=== PATIENT | male | born 1950 | race Caucasian/White ===

== ENCOUNTER 2017-01-13 07:56 | Day surgery (SDC) | payer OTHER ==
[2017-01-13] MEDS ORDERED: LIDOCAINE 1% 2 ML INJ ONE (08:23)
[2017-01-13] MEDS ORDERED: NA BICARBONATE 50 MEQ/50 ML VIAL ONE (08:38)
[2017-01-13] MEDS ORDERED: IOPAMIDOL (ISOVUE-M 200) 20 ML VIAL IV ONE (08:38)
[2017-01-13] MEDS ORDERED: TRIAMCINOLONE ACETONIDE 40 MG/ML VIAL ONE (08:38)
[2017-01-13] MEDS ORDERED: DEXAMETHASONE 10 MG/ML VIAL ONE (08:39)
[2017-01-13] MEDS ORDERED: BUPIVACAINE 0.25% 30 ML SDV ONE (08:39)
[2017-01-13] MEDS ORDERED: LIDOCAINE 1% 30 ML SDV ONE (08:39)
[2017-01-13] MEDS ORDERED: MIDAZOLAM 2 MG/2 ML VIAL ONE (08:41)
[2017-01-13] MEDS ORDERED: fentaNYL 100 MCG/2 ML INJ ONE (08:41)
[2017-01-13] MEDS ORDERED: LIDOCAINE 1% 2 ML INJ ID PRN (08:58)
[2017-01-13] MEDS ORDERED: LR 1,000 ML IV SCH (09:00)
[2017-01-13] MEDS ORDERED: MIDAZOLAM 2 MG/2 ML VIAL IVP PRN (09:01)
--- NOTE | 2017-01-13 11:01 | GPN ---
[f rep st] PROCEDURE NOTE TIME OF PROCEDURE: 9 a.m. HISTORY OF PRESENT ILLNESS: The patient presents for cervical epidural steroid injection. He complains of pain radiating from his neck into his right shoulder and back to the upper right back and scapula. He is not taking any blood thinners or antibiotics, and denies allergies to shellfish, latex, contrast dye, and iodine. PROCEDURE: C6-C7 interlaminar epidural steroid injection. DIAGNOSIS: Cervical radiculopathy. SITE: Upper back. ANESTHESIA: Local with Versed 4 mg and fentanyl 50 mcg IV. COMPLICATIONS: None. ESTIMATED BLOOD LOSS: None. PRE-PROCEDURE CONSENT: The pre-procedure consent was obtained after the risks, benefits, and alternatives of the procedure were explained to the patient. The risks include, but are not limited to, nerve injury, spinal cord injury, paralysis, headache, muscle injury, infection, bleeding, increased pain, , and any other unforeseen consequences. The patient agreed and signed the consent for the procedure. PROCEDURE VERIFICATION AND TIMEOUT: Verbal verification of patient, site, and procedure was done. All present were in agreement. Please see nursing notes for time of timeout. DESCRIPTION OF PROCEDURE: The patient was identified and placed in a prone position. Under fluoroscopic guidance, the C6-C7 interspace was isolated and the patient's back was prepped with ChloraPrep and draped in a sterile fashion. Then 2 mL of 1% lidocaine was injected subcutaneously over the target location. After adequate local analgesia was obtained, an 18-gauge, 3-1/2 inch Tuohy needle was advanced via loss of resistance technique into the epidural space using intermittent biplanar fluoroscopic guidance. Loss of resistance was obtained at 6.5 cm. The needle position was confirmed to be correct with biplanar fluoroscopy. After negative aspiration for blood and cerebrospinal fluid, 0.5 mL of nonionic contrast dye was injected. Good flow of dye was noted in the epidural space. Then 5.5 mL of a solution containing 15 mg of dexamethasone in preservative free normal saline was injected in 1 mL increments with negative aspiration in between and no pain or paresthesia upon injection. The patient tolerated the procedure well and was monitored for 30 more minutes with no apparent complications and was discharged home in good condition with a ride. He experienced no side effects from sedation and was instructed not to drive, operate heavy machinery, or make any life-altering decisions today. He was instructed to call our clinic with nonurgent concerns or 911 in an emergency. In particular he was taught that new weakness or numbness, changes in bowel or bladder control, fever and swelling or redness over the injection site are all urgent concerns that would warrant calling 911 or going to an emergency care facility. He verbalized understanding and was discharged home with postprocedure instructions. ASSESSMENT AND PLAN: C5-C6 interlaminar epidural steroid injection done today without complications. /[id number]/MODL MTDD
== END 2017-01-13 10:10 | disposition home or self-care (01) ==
LOC: FSGY 07:56
PROVIDERS: ATTEND Anesthesiology
DX: M54.2 Cervicalgia (principal)
CPT/HCPCS: J2250; J3010; J3301; Q9966

== ENCOUNTER 2017-01-14 07:05 | Observation (INO) | payer OTHER ==
--- NOTE | 2017-01-14 07:21 | CPEKG ---
Heart Rate: 66 RR Interval: 909 P-R Interval: 156 QRSD Interval: 96 QT Interval: 448 QTC Interval: 470 P [place]: 52 QRS [place]: -26 T Wave [place]: -42 EKG Severity - ABNORMAL ECG - EKG Impression: SINUS RHYTHM EKG Impression: ATRIAL PREMATURE COMPLEX Electronically Signed By: Solis Pelayo 14-Jan-2017 07:35:33
[2017-01-14] MEDS ORDERED: MAG HYDROX/AL HYDROX/SIMETH 30 ML UDCUP PO ONE (07:28)
[2017-01-14] MEDS ORDERED: NS 1,000 ML IV ONE ×2 (07:28→11:43)
[2017-01-14] MEDS ORDERED: LIDOCAINE 2% VISCOUS 15 ML UDCUP PO ONE (07:28)
[2017-01-14] MEDS ORDERED: HYOSCYAMINE SULFATE 0.125 MG TAB PO ONE (07:28)
--- NOTE | 2017-01-14 07:31 | EDPHY ---
H & P Stated Complaint: Had neck injections yesterday for 'bulging disc', has neck pain and indeges Time Seen by Provider: 01/14/17 07:09 HPI/ROS: CHIEF COMPLAINT: "Bad heartburn" HISTORY OF PRESENT ILLNESS: The patient presents to the ED with substernal esophageal discomfort which began at 5 o'clock in the morning. The patient took Zantac without improvement of his symptoms. The patient does report some radiation of the pain into his upper neck. The patient states this feels like a typical exacerbation of acid reflux however much worse. The patient has no history of coronary artery disease. The patient did have an epidural steroid injection performed yesterday and his cervical spine. The patient denies acute numbness or weakness involving his arms or legs. The patient denies history of significant hypertension, hyperlipidemia or diabetes. The patient currently rates his pain as a 9/10. REVIEW OF SYSTEMS: A comprehensive 10 point review of systems is otherwise negative aside from elements mentioned in the history of present illness. Source: Patient Exam Limitations: No limitations - Personal History Current Tetanus Diphtheria and Acellular Pertussis (TDAP): Yes Tetanus Vaccine Date: 2009 - Medical/Surgical History Hx Asthma: No Hx Chronic Respiratory Disease: Yes Hx Diabetes: No Hx Cardiac Disease: No Hx Renal Disease: Yes Hx Cirrhosis: No Hx Alcoholism: No Hx HIV/AIDS: No Hx Splenectomy or Spleen Trauma: No Other PMH: bladder obstruction, gout prostate, spinal fusion c5 c6 c7 - Social History Smoking Status: Never smoked - Physical Exam Exam: General Appearance: Alert, appears uncomfortable Eyes: Pupils equal and round no pallor or injection ENT, Mouth: Mucous membranes moist Respiratory: There are no retractions, lungs are clear to auscultation Cardiovascular: Regular rate and rhythm Gastrointestinal: Abdomen is soft and nontender, no masses, bowel sounds normal Neurological: A&O, normal motor function, normal sensory exam, normal cranial nerves Skin: Warm and dry, no rashes Musculoskeletal: Neck is supple nontender Extremities: symmetrical, full range of motion Constitutional: Initial Vital Signs Temperature (C) 36.6 C 01/14/17 07:07 Heart Rate 68 01/14/17 07:07 Respiratory Rate 18 01/14/17 07:07 Blood Pressure 158/89 H 01/14/17 07:07 O2 Sat (%) 95 01/14/17 07:07 O2 Delivery Mode Room Air O2 (L/minute) 2 Allergies/Adverse Reactions: morphine Allergy (Intermediate, Verified 01/07/17 16:12) HEADACHE hydromorphone HCl [From Dilaudid] Allergy (Verified 01/07/17 16:12) Home Medications: Medication Instructions Recorded Allopurinol [Allopurinol 300 MG 03/30/14 (RX)] Diazepam [Valium 5 MG (*)] 03/30/14 Oxycodone Ir [Oxy Ir 5 mg (RX)] 03/30/14 Zolpidem Tartrate [Ambien 5MG (*)] 03/30/14 oxyCODONE CR [Oxycontin] 03/30/14 Medical Decision Making - Diagnostics EKG Interpretation: EKG: Complete interpretation has been separately recorded in the [facility] archive. Summary impression: Sinus rhythm, premature atrial beat, nonspecific ST T wave changes are noted Imaging: Chest x-ray PA/lateral: Images reviewed by myself, negative for acute disease. ED Course/Re-evaluation: The patient presents to the emergency department for evaluation of a variety of symptoms including substernal chest discomfort which he attributes to bad acid reflux, mild neck discomfort following an epidural steroid injection and some radiation of his chest pain to the anterior aspect of his neck. The patient had no improvement of his symptoms with a GI cocktail in the ED. The patient had a EKG which which demonstrated nonspecific changes. The patient's initial troponin was slightly elevated at 0.044. The patient had a repeat EKG done in 0.5 hour which demonstrated no dynamic changes. Another troponin was drawn and it had doubled. The patient had nitroglycerin with some improvement of his symptoms. The patient received a 324 mg dose of aspirin in the ED. I consulted with Dr. Ryan Miller who is one call for cardiology who evaluated the patient in the ED. Given the patient's complaints and elevated troponin he will be taken to the laboratory equipment installer. The patient will be admitted to the hospitalist service this evening. Consultation is made with Dr. Clarence Drake who will admit the patient. Re-evaluated at 11:00 a.m.: Resting comfortably in room. Awaiting transfer to cardiac laboratory equipment installer. Differential Diagnosis: Differential diagnosis considered includes myocardial infarction, arrhythmia, pericarditis, pneumothorax - Data Points Laboratory Results: Laboratory Results 01/14/17 07:30 01/14/17 07:30 01/14/17 01/14/17 01/14/17 09:04 07:30 07:30 WBC 14.72 10^3/uL H 10^3/uL (3.80-9.50) RBC 5.95 10^6/uL 10^6/uL (4.40-6.38) Hgb 18.2 g/dL H g/dL (13.7-17.5) Hct 50.0 % % (40.0-51.0) MCV 84.0 fL fL (81.5-99.8) MCH 30.6 pg pg (27.9-34.1) MCHC 36.4 g/dL g/dL (32.4-36.7) RDW 13.0 % % (11.5-15.2) Plt Count 294 10^3/uL 10^3/uL (150-400) MPV 9.7 fL fL (8.7-11.7) Neut % (Auto) 85.1 % H % (39.3-74.2) Lymph % (Auto) 9.5 % L % (15.0-45.0) [place] % (Auto) 4.9 % % (4.5-13.0) Eos % (Auto) 0.0 % L % (0.6-7.6) Baso % (Auto) 0.1 % L % (0.3-1.7) Nucleat RBC Rel Count 0.0 % % (0.0-0.2) Absolute Neuts (auto) 12.52 10^3/uL H 10^3/uL (1.70-6.50) Absolute Lymphs (auto) 1.40 10^3/uL 10^3/uL (1.00-3.00) Absolute Monos (auto) 0.72 10^3/uL 10^3/uL (0.30-0.80) Absolute Eos (auto) 0.00 10^3/uL L 10^3/uL (0.03-0.40) Absolute Basos (auto) 0.02 10^3/uL 10^3/uL (0.02-0.10) Absolute Nucleated RBC 0.00 10^3/uL 10^3/uL (0-0.01) Immature Gran % 0.4 % % (0.0-1.1) Immature Gran # 0.06 10^3/uL 10^3/uL (0.00-0.10) Sodium 141 mEq/L mEq/L (134-144) Potassium 4.4 mEq/L mEq/L (3.5-5.2) Chloride 102 mEq/L mEq/L (97-110) Carbon Dioxide 25 mEq/l mEq/l (22-31) Anion Gap 14 mEq/L mEq/L (8-16) BUN 24 mg/dL H mg/dL (7-23) Creatinine 1.2 mg/dL mg/dL (0.7-1.3) Estimated GFR > 60 Glucose 135 mg/dL H mg/dL (70-100) Calcium 10.8 mg/dL H mg/dL (8.5-10.4) Phosphorus 3.9 mg/dL mg/dL (2.5-4.5) Troponin I 0.093 ng/mL H ng/mL 0.044 ng/mL H ng/mL (0-0.034) (0-0.034) Medications Given: Discontinued Medications Al Hydroxide/Mg Hydroxide (Maalox Susp) 30 ml PO ONCE ONE Stop: 01/14/17 07:29 Last Admin: 01/14/17 07:38 Dose: 30 ml Aspirin (Aspirin) 324 mg PO EDNOW ONE Stop: 01/14/17 10:08 Last Admin: 01/14/17 10:13 Dose: 324 mg Hyoscyamine Sulfate (Levsin, Hyomax-Sl) 0.25 mg PO ONCE ONE Stop: 01/14/17 07:29 Last Admin: 01/14/17 07:37 Dose: 0.25 mg Sodium Chloride (Ns) 1,000 mls @ 0 mls/hr IV ONCE ONE PRN Reason: Wide Open Stop: 01/14/17 07:29 Last Admin: 01/14/17 07:38 Dose: 1,000 mls Lidocaine (Lidocaine 2% Viscous) 15 ml PO ONCE ONE Stop: 01/14/17 07:29 Last Admin: 01/14/17 07:38 Dose: 15 ml Nitroglycerin (Nitrostat) 0.4 mg SL EDNOW ONE Stop: 01/14/17 09:45 Last Admin: 01/14/17 09:45 Dose: 0.4 mg Departure - Departure Disposition: [facility] Acute Clinical Impression: Chest pain, Acute coronary syndrome Condition: Good Referrals: Lillian Roblero MD [Primary Care Provider] - As per Instructions
[2017-01-14 07:42] LABS: % IMMATURE GRANULYOCYTES 0.4 % (0.0-1.1); ABSOLUTE IMMATURE GRANULOCYTES 0.06 10^3/uL (0.00-0.10); ADD DIFF? NO; ADD MORPH? NO; ADD SCAN? NO; ATYPICAL LYMPHOCYTE FLAG 0 (0-99); FRAGMENT RBC FLAG 0 (0-99); HEMOGLOBIN 18.2 g/dL (13.7-17.5); LEFT SHIFT FLG 0 (0-99); LIPEMIA HEMOLYSIS FLAG 90 (0-99); MEAN CELL HEMOGLOBIN 30.6 pg (27.9-34.1); MEAN CELL HEMOGLOBIN CONCENTR. 36.4 g/dL (32.4-36.7); MEAN PLATELET VOLUME 9.7 fL (8.7-11.7); PLATELET CLUMPS FLAG 0 (0-99); PLATELET COUNT 294 10^3/uL (150-400); RED BLOOD CELL COUNT 5.95 10^6/uL (4.40-6.38)
[2017-01-14 07:59] LABS: ANION GAP 14 mEq/L (8-16); CALCIUM 10.8 mg/dL (8.5-10.4); CARBON DIOXIDE 25 mEq/l (22-31); CHLORIDE 102 mEq/L (97-110); CREATININE 1.2 mg/dL (0.7-1.3); GLOMERULAR FILTRATION RATE > 60; GLUCOSE 135 mg/dL (70-100); POTASSIUM 4.4 mEq/L (3.5-5.2); SODIUM 141 mEq/L (134-144)
[2017-01-14 08:09] LABS: TROPONIN I 0.044 ng/mL (0-0.034)
[2017-01-14] MEDS ORDERED: NITROGLYCERIN 0.4 MG BTL SL ONE ×2 (09:42→09:44)
[2017-01-14] MEDS ORDERED: ASPIRIN 81 MG CHEWABLE TAB PO ONE (10:07)
--- NOTE | 2017-01-14 11:10 | ECHO ---
[id number] + + [address] : : [place] [address] : : [phone] + Adult Echocardiographic Report + ---+ :Name: MO NOYOLA JStudy Date: 01/14/2017 09:10 AM : : Hospital Admission Number: [id number] : :: 1950 Gender: Male Height: 71 in : :Age: 66 yrs Race: WH Weight: 210 l b : :Reason For Study: Chest Pain : : BSA: 2.2 mete rs2: + ---+ MMode/2D Measurements \T\ Calculations IVSd: 0.92 cm LVIDd: 5.9 cm FS: 34.0 % Ao root diam: LVPWd: 0.80 cm LVIDs: 3.9 cm EDV(Teich): 4.3 cm 170.5 ml LA dimension: ESV(Teich): 4.4 cm 64.7 ml EF(Teich): 62.1 % LVLd ap4: 9.1 cm SV(MOD-sp4): EDV(MOD-sp4): 90.0 ml 128.0 ml LVLs ap4: 6.3 cm ESV(MOD-sp4): 38.0 ml EF(MOD-sp4): 70.3 % Normal Measurement Values: + + :LVIDd (3.5-5.7cm) IVSd (0.6-1.1cm) LVPWd (0.6-1.1cm) Aortic Root (2.0-3.7cm)Left Atrium (1.5-4.0cm): :LV Vol(d) (76-115ml) LV Vol(s) (29-48ml) Ejec Fraction (50-65%)PV Cy (0.6- 1.2m/s) TV Cy (0.4-1.0m/s) : :MV E Cy (0.8-1.0m/s)MV A Cy (0.3-1.0m/s)LVOT Cy (0.7-1.2m/s) Asc Ao Cy ( 0.9-1.8m/s) : + + Doppler Measurements \T\ Calculations MV E max cy: Ao V2 max: AI max cy: TR max cy: 84.9 cm/sec 145.0 cm/sec 427.0 cm/sec 285.0 cm/sec MV A max cy: Ao max PG: AI max P.9 mmHgTR max P.2 cm/sec 8.4 mmHg AI dec slope: 32.5 mmHg MV E/A: 1.3 271.0 cm/sec2 RAP systole: AI P1/2t: 461.5 msec5.0 mmHg RVSP(TR): 37.5 mmHg Left Ventricle The left ventricle is normal in size. There is normal left ventricular wall thickness. Left ventricular systolic function is normal. Ejection Fraction = 65-70%. No regional wall motion abnormalities noted. Right Ventricle The right ventricle is normal in size and function. Atria The left atrial size is normal. Right atrial size is normal. The interatrial septum is intact with no evidence for an atrial septal defect. Mitral Valve The mitral valve is normal in structure and function. There is no evidence of mitral valve prolapse. There is no mitral valve stenosis. There is mild mitral regurgitation. Tricuspid Valve Normal tricuspid valve. There is mild tricuspid regurgitation. Aortic Valve The aortic valve is trileaflet. The aortic valve opens well. There is no aortic stenosis. Mild aortic regurgitation. Pulmonic Valve The pulmonic valve is normal in structure and function. There is no pulmonic valvular regurgitation. Great Vessels The aortic root is normal size. Pericardium/Pleural There is no pericardial effusion. Conclusion A complete two-dimensional transthoracic echocardiogram was performed (2D, M-mode, Doppler and color flow Doppler). Left ventricular systolic function is normal. Ejection Fraction = 65-70%. There is mild mitral regurgitation. There is mild tricuspid regurgitation. Mild aortic regurgitation. Final Reading Physician: Mauro Mares signed on 01/14/2017 11:08 AM Ordering Physician: Solis Pelayo Performed By: Simona Vallejo RDCS
[2017-01-14] MEDS ORDERED: ONDANSETRON DISINTEGRATING 4 MG TAB PO PRN (11:22)
[2017-01-14] MEDS ORDERED: ONDANSETRON 4 MG/2 ML VIAL IVP PRN (11:22)
[2017-01-14] MEDS ORDERED: NITROGLYCERIN 0.4 MG BTL SL PRN (11:22)
[2017-01-14] MEDS ORDERED: TEMAZEPAM 15 MG CAP PO PRN (11:22)
[2017-01-14] MEDS ORDERED: ACETAMINOPHEN 325 MG TAB PO PRN (11:22)
[2017-01-14] MEDS ORDERED: oxyCODONE IR 5 MG TAB PO PRN (11:22)
[2017-01-14] MEDS ORDERED: HYDROmorphONE/DILAUDID 1 MG/ML SYR IVP PRN (11:24)
[2017-01-14] MEDS ORDERED: FAMOTIDINE 20 MG TAB PO ONE (11:43)
[2017-01-14] MEDS ORDERED: DIAZEPAM 5 MG TAB PO ONE (11:43)
[2017-01-14] MEDS ORDERED: ASPIRIN EC 325 MG TAB PO ONE (11:43)
[2017-01-14] MEDS ORDERED: diphenhydrAMINE 25 MG CAP PO ONE (11:43)
--- NOTE | 2017-01-14 12:14 | GHP ---
[f rep st] HISTORY AND PHYSICAL DATE OF ADMISSION: 01/14/2017 CHIEF COMPLAINT: Chest pain. HISTORY OF PRESENT ILLNESS: This is a 66-year-old man who presents with chest pain. It started about 5 this morning, described as a burning, radiating up to his jaw. He has been more tired over the past few days than normal as well. Chest pain was not really changed with exertion, though it did get better with nitroglycerin. It is 90% better than what it was when he presented. He has had a stress test in the past for what sounds like palpitations, which he was told was normal. He has never otherwise seen a interactive video technician. His chest pain was not associated with any nausea, vomiting, shortness of breath, or diaphoresis. He received an AMY to his cervical spine yesterday due to pain. Seen in the ED by Dr. Miller, who recommends angiogram. PAST MEDICAL/SURGICAL HISTORY: 1. Kidney stones. 2. TURP. 3. Chronic pain on continuous narcotics from cervicalgia. 4. Gout. 5. Insomnia. MEDICATIONS: Please see medication reconciliation. ALLERGIES: Morphine and hydromorphone. SOCIAL HISTORY: He occasionally drinks alcohol. He has never smoked. FAMILY HISTORY: His father of CHF in his 70s. REVIEW OF SYSTEMS: 10-point review of systems is conducted and is negative except per HPI. PHYSICAL EXAMINATION: VITAL SIGNS: Blood pressure 135/82, heart rate 51, respiration rate 16, saturating 93% on room air. Temperature 37. GENERAL: The patient is a pleasant man who is lying in bed, comfortable, in no acute distress. HEENT: Shows him to be normocephalic, atraumatic. CARDIOVASCULAR: Regular rate and rhythm. No murmurs, rubs, or gallops. Radial and dorsalis pedis pulses are 2+ and symmetric. PULMONARY: Exam shows him to be in no respiratory distress. Lungs are clear to auscultation bilaterally. ABDOMEN: Soft, nontender, nondistended. SKIN: No rash. : Showed no [place]. NEUROLOGIC: Exam shows him to be alert and oriented x3. He is moving all extremities. PSYCHIATRIC: Exam shows normal mood and affect. LABS: Calcium 10.8. Troponin is as high as 0.093. White count is 14.7. DATA: 1. I reviewed his chart. 2. I reviewed his echocardiogram and it shows normal EF with mild valvular disease. 3. I personally viewed and interpreted his chest x-ray. This shows nothing acute, normal heart size. 4. EKG, which I personally reviewed and interpreted, shows sinus rhythm. He has T-wave inversion in 3, mild ST depression in lead V3. Otherwise T-wave flattening in all the precordial leads. IMPRESSION AND PLAN: A 66-year-old man presents with chest pain. 1. Chest pain: Concerning for angina. He has an elevated troponin. Dr. Miller plans angiogram today. I do not suspect pulmonary embolism at this point. Further treatment will depend on his clinical course as well as angiogram. 2. Chronic pain on continuous narcotics: Will continue his home medications. 3. Gout: Allopurinol. 4. Code status is full. 5. Venous thromboembolism risk is moderate. I will give him Lovenox. /[id number]/MODL MTDD
[2017-01-14] MEDS ORDERED: LIDOCAINE 1% 30 ML SDV ONE (12:22)
[2017-01-14] MEDS ORDERED: IOPAMIDOL (ISOVUE 370) 100 ML BTL IV ONE (12:23)
[2017-01-14] MEDS ORDERED: fentaNYL 100 MCG/2 ML INJ ONE (12:23)
[2017-01-14] MEDS ORDERED: MIDAZOLAM 2 MG/2 ML VIAL ONE (12:23)
[2017-01-14 12:51] LABS: INR 1.09 (0.83-1.16)
[2017-01-14 13:09] LABS: CHOLESTEROL 178 mg/dL (140-220); HIGH DENSITY LIPOPROTEIN 54 mg/dL (40-65); LDL/HDL RATIO 2.06 RATIO (1.00-3.64); LOW DENSITY LIPOPROTEIN 111 mg/dL (80-100); MAGNESIUM 2.3 mg/dL (1.6-2.3); NON-HIGH DENSITY LIPOPROTEIN 124 mg/dL (90-129); TRIGLYCERIDE 68 mg/dL (40-150); VERY LOW DENSITY LIPOPROTEINS 13 mg/dL (8-25)
[2017-01-14] MEDS ORDERED: ATROPINE SULFATE 1 MG/10 ML SYR IVP PRN (13:24)
--- NOTE | 2017-01-14 13:24 | PDDXCAT ---
Diagnostic Cath Note - . Date: 01/14/17 Postal Carrier: Paul Indication: CCC Class III and IV angina on medical treatment - Procedure Access: right groin Procedure: left heart catheterization, coronary angiography - Materials Left Heart Cath size: 5F Left Heart Cath materials: standard multipack (JL4, JR4, pigtail), other (AL1) - Findings-Left Heart Catheterization LM: normal LAD: apical 50% stenosis LCX: normal RCA: Anterior take off. non-domainant. normal Complications: none Estimated blood loss: <50ml Closure method: manual pressure Assessment: Normal Cors. Normal LV function Patient Problems: Problems Problem Status Onset Bladder neck obstruction Active Calculus of kidney and ureter Acute Chest pain Acute Acute coronary syndrome Acute
--- NOTE | 2017-01-14 13:25 | GCON ---
[f rep st] CONSULTATION CARDIOLOGY CONSULT DATE OF CONSULTATION: 01/14/2017 REFERRING PHYSICIAN: Dr. Saleh HISTORY OF PRESENT ILLNESS: I am asked by Dr. Saleh to come visit with the patient emergently, to the emergency department. He is a 66-year-old male. No prior cardiovascular history. History of severe neck pain status post fusion, status post injection of facets last night, who awoke this morning with 10/10 substernal chest pressure. He initially thought this was heartburn. It radiated up into his mouth and into his jaw. He was concerned that this did not represent his typical reflux and came to the emergency department. On arrival, he was continuing to have discomfort. It was not responsive to Zantac. It was not responsive to standard therapy including use of nitroglycerin. His initial EKG showed sinus rhythm with ST depression in the inferior leads that was quite subtle. His initial troponin was elevated, it doubled over the course of an hour with ongoing symptoms, and I am asked to comment. Patient's recent history includes again worsening neck pain status post injection last evening by Dr. Brooke. The patient has no history of hypertension , no history of hyperlipidemia. He is a prediabetic. He is a nonsmoker. He has no family history of early heart disease. Patient denies currently shortness of breath, PND, orthopnea. He has had no palpitations, syncope, or near syncope. He has had no nausea, vomiting. He has abdominal pain which has been there for the last 24 to 48 hours. He has had no diarrhea or constipation. He denies dysuria. MEDICATIONS: Please see attached. SOCIAL HISTORY: He is employed, however, has been suffering from significant neck pain which has limited his physical activity. He usually is quite active, but has not been active for many months. REVIEW OF SYSTEMS: Negative for fever, chills, weight loss, weight gain. He has had no sore throat. He denies cough. He denies hemoptysis, melena, or hematemesis. He has abdominal pain as described above. He has had no diarrhea or constipation, dysuria, or bruising, bleeding. Neurologically, he denies headache. PHYSICAL EXAMINATION: VITAL SIGNS: On my arrival, his heart rate is 52, blood pressure is 130/70. GENERAL: He is a well-nourished, well-rebound or guarding. Femoral pulses are +2. Radial pulses are +2. Distal extremities reveal no edema. There is no clubbing or cyanosis. SKIN: Normal, without rash. NEUROLOGIC: He is alert and oriented, with normal mood and affect. MUSCULOSKELETAL: No calf tenderness, with full range of motion. LABORATORY DATA: Reviewed. Primarily, EKG showed sinus rhythm with subtle ST depression in inferior leads. Chest x-ray revealed no cardiomegaly, without infiltration.developed male resting comfortably in bed. HEENT: Significant for no xanthelasma. His oropharynx is clear though he is missing a front tooth. He has no JVP. CHEST: Clear to auscultation and percussion. Palpation of the anterior chest wall reveals no RV lift. He has a regular rate and rhythm without murmur, rub, or gallop. ABDOMEN: Soft, nontender with good bowel sounds. He does have tenderness in the mid epigastrium to deep palpation without IMPRESSION: The patient presents with acute substernal chest pain radiating to the jaw associated with elevation in troponin, and subtle EKG findings. This is complicated by recent neck injections which, in my mind, precludes aggressive anticoagulation for at least 24 to 48 hours. RECOMMENDATIONS: For diagnostic angiogram from the leg to determine what we are dealing with. If he has a significant proximal lesion, would recommend leaving sheaths in with observation in the intensive care unit, with intervention tomorrow or the next day depending on how he does clinically. If his angiograms show minimal disease or distal branch vessel disease, medical therapy would be recommended to try to avoid complications of his recent neck injections. Risks of this were discussed with the patient. Dr. Brooke was notified by the emergency department, by Dr. Saleh, who felt that at least 24 hours should go by before the risk of an epidural hematoma would be sufficient that intervention could be considered. The patient will be followed up post- procedure. Risks and benefits were discussed. Will proceed. /[id number]/MODL MTDD
--- NOTE | 2017-01-14 15:06 | CPEKG ---
Heart Rate: 59 RR Interval: 1017 P-R Interval: 160 QRSD Interval: 98 QT Interval: 500 QTC Interval: 496 P [place]: 59 QRS [place]: -21 T Wave [place]: -26 EKG Severity - ABNORMAL ECG - EKG Impression: SINUS RHYTHM EKG Impression: PROBABLE LEFT ATRIAL ABNORMALITY EKG Impression: BORDERLINE LEFT AXIS DEVIATION EKG Impression: BORDERLINE T ABNORMALITIES, DIFFUSE LEADS EKG Impression: BORDERLINE PROLONGED QT INTERVAL Electronically Signed By: Solis Pelayo 14-Jan-2017 15:10:34
[2017-01-14] MEDS ORDERED: DIAZEPAM 10 MG TAB PO PRN (17:27)
[2017-01-14] MEDS: oxyCODONE IR 15 MG TAB PO PRN (17:57)
[2017-01-14] MEDS ORDERED: ZOLPIDEM TARTRATE 5 MG TAB PO SCH (21:00)
[2017-01-14] MEDS ORDERED: *ANGINA PROTOCOL*NITROGLYCERIN/DEXTR IV SCH (21:30)
[2017-01-15 04:39] LABS: % IMMATURE GRANULYOCYTES 0.3 % (0.0-1.1); ABSOLUTE IMMATURE GRANULOCYTES 0.03 10^3/uL (0.00-0.10); ADD DIFF? NO; ADD MORPH? NO; ADD SCAN? NO; ATYPICAL LYMPHOCYTE FLAG 0 (0-99); FRAGMENT RBC FLAG 0 (0-99); HEMATOCRIT 45.6 % (40.0-51.0); HEMOGLOBIN 15.8 g/dL (13.7-17.5); LEFT SHIFT FLG 0 (0-99); LIPEMIA HEMOLYSIS FLAG 90 (0-99); MEAN CELL HEMOGLOBIN 29.5 pg (27.9-34.1); MEAN CELL HEMOGLOBIN CONCENTR. 34.6 g/dL (32.4-36.7); MEAN CELL VOLUME 85.2 fL (81.5-99.8); MEAN PLATELET VOLUME 9.9 fL (8.7-11.7); PLATELET CLUMPS FLAG 0 (0-99); PLATELET COUNT 238 10^3/uL (150-400); RED BLOOD CELL COUNT 5.35 10^6/uL (4.40-6.38); RED CELL DISTRIBUTION WIDTH 13.3 % (11.5-15.2)
[2017-01-15 04:57] LABS: ANION GAP 10 mEq/L (8-16); CALCIUM 9.1 mg/dL (8.5-10.4); CARBON DIOXIDE 22 mEq/l (22-31); CHLORIDE 108 mEq/L (97-110); CREATININE 1.1 mg/dL (0.7-1.3); GLOMERULAR FILTRATION RATE > 60; GLUCOSE 98 mg/dL (70-100); POTASSIUM 4.3 mEq/L (3.5-5.2); SODIUM 140 mEq/L (134-144)
[2017-01-15] MEDS ORDERED: ALLOPURINOL 300 MG TAB PO SCH (09:00)
[2017-01-15] MEDS ORDERED: ENOXAPARIN 40 MG/0.4 ML SYR SC SCH (09:00)
--- NOTE | 2017-01-15 09:27 | CPEKG ---
Heart Rate: 57 RR Interval: 1053 P-R Interval: 156 QRSD Interval: 100 QT Interval: 432 QTC Interval: 421 P [place]: 57 QRS [place]: -34 T Wave [place]: 24 EKG Severity - ABNORMAL ECG - EKG Impression: SINUS RHYTHM EKG Impression: SINUS PAUSE/ARREST WITH ATRIAL ESCAPE-- New since January 14, 2017 EKG Impression: PROBABLE LEFT ATRIAL ABNORMALITY EKG Impression: LEFT AXIS DEVIATION Electronically Signed By: Pj Warren 15-Jan-2017 12:49:25
[2017-01-15] MEDS: oxyCODONE IR 15 MG TAB PO PRN (10:17)
[2017-01-15 11:13] LABS: CK-MB INTERPRETATION POSITIVE (NEGATIVE)
[2017-01-15 12:03] VITALS: BP 128/88; PULSE 63; RESP 17; TEMP 98.1; O2SAT 94
--- NOTE | 2017-01-15 12:19 | ECHO ---
[id number] + + [address] : : [place] [address] : : [phone] + + Adult Echocardiographic Report + --------+ :Name: MO NOYOLA JStudy Date: 01/15/2017 10:18 AM : : Hospital Admission Number: [id number] Locat ion: 200: :: 1950 Gender: Male Height: 71 in : :Age: 66 yrs Race: WH Weight: 208 l b : :Reason For Study: regional wall motion abnl : : BSA: 2.1 mete rs2 : :History: elev trop : + --------+ MMode/2D Measurements \T\ Calculations IVSd: 1.3 cm LVIDd: 4.9 cmFS: 29.0 % LVLd ap4: 9.3 cm LVPWd: 1.2 cm LVIDs: 3.5 cmEDV(Teich): 111.0 mlEDV(MOD-sp4): 190.0 ml ESV(Teich): 49.3 ml LVLs ap4: 7.6 cm EF(Teich): 55.6 % ESV(MOD-sp4): 76.0 ml EF(MOD-sp4): 60.0 % SV(MOD-sp4): 114.0 ml Normal Measurement Values: + + :LVIDd (3.5-5.7cm) IVSd (0.6-1.1cm) LVPWd (0.6-1.1cm) Aortic Root (2.0-3.7cm)Left Atrium (1.5-4.0cm): :LV Vol(d) (76-115ml) LV Vol(s) (29-48ml) Ejec Fraction (50-65%)PV Cy (0.6- 1.2m/s) TV Cy (0.4-1.0m/s) : :MV E Cy (0.8-1.0m/s)MV A Cy (0.3-1.0m/s)LVOT Cy (0.7-1.2m/s) Asc Ao Cy ( 0.9-1.8m/s) : + + Doppler Measurements \T\ Calculations TR max cy: 274.2 cm/sec TR max P.1 mmHg RAP systole: 5.0 mmHg RVSP(TR): 35.1 mmHg Left Ventricle The left ventricle is normal in size and function. There is mild concentric left ventricular hypertrophy. Ejection Fraction = 60%. No regional wall motion abnormalities noted. Conclusion Limited echocardiogram to assess for regional wall motion abnormalities. The left ventricle is normal in size and function. There is mild concentric left ventricular hypertrophy. Ejection Fraction = 60%. Final Reading Physician: Mauro Mares signed on 01/15/2017 12:18 PM Ordering Physician: KRIS CAIN Performed By: Caryn Romero
[2017-01-15] MEDS ORDERED: IOPAMIDOL (ISOVUE 370) 100 ML BTL IV ONE (12:27)
--- NOTE | 2017-01-15 12:41 | SOAPPROG ---
SOAP Progress Note Assessment/Plan: Assessment: Acute coronary syndrome associated with rise in troponin, CPK associated with normal coronary angiogram and normal LV function. Impression: Stable hemodynamics today. Episode of chest pain last night. This morning up walking without angina. Repeat echocardiogram shows no LV dysfunction. Repeat EKG shows sinus rhythm without acute ST-T changes. Recommendations are for daily aspirin. Low-dose calcium channel karen. Low-dose statin therapy for elevated LDL cholesterol. Repeat echocardiogram week to 10 days to exclude significant myocarditis. With low D-dimer doubt pulmonary embolic disease. However this could lead to right heart strain with an elevation in CPK and troponin. 01/15/17 12:41 01/15/17 12:44 Subjective: Feeling great this morning. Episode of chest discomfort last night requiring nitroglycerin. Patient denies PND orthopnea. He has had no syncope or near syncope. Objective: Vital Signs Temp Pulse Resp BP Pulse Ox 36.7 C 63 17 128/88 H 94 01/15/17 12:03 01/15/17 12:03 01/15/17 12:03 01/15/17 12:03 01/15/17 12:03 Laboratory Results 01/15/17 03:36 01/15/17 03:36 01/14/17 01/15/17 01/16/17 05:59 05:59 05:59 Intake Total 600 Output Total 800 Balance -200 PT 14.0 SEC (12.0-15.0) 01/14/17 12:25 INR 1.09 (0.83-1.16) 01/14/17 12:25 Echocardiogram reviewed today revealed normal LV systolic function with no regional wall motion abnormalities. EKG follow-up showed sinus rhythm without acute ST-T changes. Laboratory Tests 01/15/17 01/15/17 01/15/17 03:36 10:43 10:43 Creatine Kinase 317 H CK-MB (CK-2) Fraction 14.80 H CK-MB (CK-2) % 4.7 H Troponin I 7.320 H 5.050 H Physical Exam - Physical Exam General Appearance: alert, no apparent distress EENT: PERRL/EOMI Neck: non-tender, full range of motion Respiratory: chest non-tender, lungs clear Cardiac/Chest: normal peripheral pulses, regular rate, rhythm, No edema, No gallop, No JVD Peripheral Pulses: 2+: carotid (R), carotid (L) Abdomen: normal bowel sounds, non-tender Back: Normal inspection Skin: normal color, warm/dry Lymphatic: no adenopathy Extremities: normal range of motion Neuro/Psych: no motor/sensory deficits, alert ICD10 Worksheet Patient Problems: Problems Problem Status Onset Bladder neck obstruction Active Calculus of kidney and ureter Acute Chest pain Acute Acute coronary syndrome Acute Review of Systems - Review of Systems Constitutional: denies: chills, fever EENTM: no symptoms reported Respiratory: no symptoms reported Cardiac: no symptoms reported Gastrointestinal/Abdominal: no symptoms reported Genitourinary: no symptoms Musculoskelatal: back pain, neck pain Skin: no symptoms Neurological: no symptoms Hematologic/Lymphatic: no symptoms reported
[2017-01-15] MEDS ORDERED: ATORVASTATIN CALCIUM 20 MG TAB PO SCH (13:00)
[2017-01-15] MEDS ORDERED: ASPIRIN 81 MG CHEWABLE TAB PO SCH (13:00)
--- NOTE | 2017-01-15 17:18 | GDS ---
[f rep st] DISCHARGE SUMMARY ALL DIAGNOSES: 1. Chest pain. 2. Elevated troponin with normal coronary arteries angiographically. 3. Chronic pain, on continuous narcotics. 4. Gout. 5. Ascending aortic aneurysm, needing outpatient followup. HOSPITAL COURSE: This is a 66-year-old man who presented with chest pain. He had an EKG which showed T-wave flattening as well as mild ST depression in inferior leads and precordial leads. He had elevated troponin which peaked at 7.3. He had a relatively unremarkable echocardiogram. He underwent a cath by Dr. Miller, which showed normal coronary arteries angiographically. He had ongoing chest pain, which was relieved by nitro overnight. He also had CT angiogram which was negative for clot, though did show a 4.3 cm ascending aortic aneurysm without dissection. It is somewhat unclear exactly what occurred. Will treat him as though he had a coronary event, though this was not seen on angiogram. He will be discharged on aspirin and statin. I have added amlodipine for his hypertension, as he would not tolerate a beta karen due to bradycardia at baseline. This may indicate myocarditis or pericarditis, but no pericardial effusions were seen on echocardiograms. Notably his ST and T-wave abnormalities resolved the morning after presentation. I discussed this with Dr. Miller who is comfortable discharging him with close followup. I offered to keep him in the hospital for ongoing monitoring, however he declined and was anxious to be discharged. I gave him strict return precautions - notably if he has recurrent chest pain that is not immediately relieved by one nitro. I have given him [facility]' s number so that he can follow up soon. /[id number]/MODL MTDD
== END 2017-01-15 16:00 | disposition home or self-care (01) ==
LOC: F2W 11:55
PROVIDERS: ADMIT Student in an Organized Health Care Education/Training Program; ATTEND Student in an Organized Health Care Education/Training Program
PROC: 4A023N7 Measurement of Cardiac Sampling and Pressure, Left Heart, Percutaneous Approach (ICD-10-PCS; principal; 2017-01-14)
PROC: B2151ZZ Fluoroscopy of Left Heart using Low Osmolar Contrast (ICD-10-PCS; principal; 2017-01-14)
PROC: B246ZZZ Ultrasonography of Right and Left Heart (ICD-10-PCS; principal; 2017-01-14)
PROC: B2111ZZ Fluoroscopy of Multiple Coronary Arteries using Low Osmolar Contrast (ICD-10-PCS; principal; 2017-01-14)
DX: R07.9 Chest pain, unspecified (principal); R79.89 Other specified abnormal findings of blood chemistry; M54.2 Cervicalgia; G89.29 Other chronic pain; M10.9 Gout, unspecified; I71.2 Thoracic aortic aneurysm, without rupture; R73.03 Prediabetes; G47.00 Insomnia, unspecified; Z98.890 Other specified postprocedural states; Z98.1 Arthrodesis status; Z87.442 Personal history of urinary calculi; Z79.891 Long term (current) use of opiate analgesic
CPT/HCPCS: 71020; 71275; 93005; 93306; 93308; 93458; 96360; 99285; G0378; J0461; J1200; J1644; J1650; J2250; J3010; Q9967

== ENCOUNTER → 2017-02-03 | Outpatient (CLI) | payer OTHER | LOC: CIMAGING 15:36 | PROVIDERS: ATTEND Clinical Nurse Specialist | DX: M51.36 Other intervertebral disc degeneration, lumbar region (principal); M51.37 Other intervertebral disc degeneration, lumbosacral region | CPT/HCPCS: 72100-PO ==

== ENCOUNTER → 2017-09-16 | Outpatient (CLI) | payer OTHER | LOC: FIMAGING 12:25 | PROVIDERS: ATTEND Orthopaedic Surgery Orthopaedic Surgery of the Spine | DX: M51.36 Other intervertebral disc degeneration, lumbar region (principal) ==

== ENCOUNTER 2017-09-21 06:02 | Inpatient (IN) | payer OTHER ==
--- NOTE | 2017-09-20 17:23 | GHP ---
[f rep st] PREOP HISTORY AND PHYSICAL DATE OF ADMISSION: 09/21/2017 HISTORY: The patient is a pleasant 67-year-old gentleman well known to my practice. He underwent a C5 to C7 anterior diskectomy, fusion with instrumentation by myself in 2005 and has done well from at. I have also evaluated him for low back problems that have been ongoing for many years. The melinda ent has done physical therapy, 2 epidural steroid injections, radiofrequency rhizotomies, facet joint injections, use of a back brace, and anti-inflammatories as well as pain management through the [facility]. He is electing to undergo surgery due to chronicity and increased pain. Current ly 100% of his symptoms are referable to the lower back. He does occasionally have bilateral lower e xtremity symptoms. Patient denies any loss of bowel or bladder control. He is a nonsmoker and has n o underlying psychological issues. On a 1-10 scale, his pain ranges from a 6 to a 9. SOCIAL HISTORY: Negative for tobacco. Negative for alcohol. FAMILY HISTORY: Negative. PAST MEDICAL HISTORY: Significant for hypercholesterolemia, hypertension, insomnia, nephrolithiasis, gout, and a myocardial infarction. 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 PAST SURGICAL HISTORY: Significant for the aforementioned C5-C7 ACDF. ALLERGIES: Patient states he is allergic to morphine. MEDICATIONS: OxyContin 20 mg 1 p.o. b.i.d., Oxy IR 15 mg 1 p.o. q.i.d., and Flexeril. PHYSICAL EXAM: VITAL SIGNS: Blood pressure is 128/82. GENERAL: Patient is alert and oriented x3. CARDIAC: Regular rate and rhythm without detectable murmur, rub, or gallop. LUNGS: Clear to auscu ltation. He has no wheezing or rhonchi. NEUROLOGIC: Strength of bilateral lower extremities 5/5 th roughout. Light touch is intact with the exception of decrease along the right knee. Patellar refle xes are 2+/4, and Achilles reflexes are 1/4. Straight leg raising is negative x2 for true radiculopa thy, but right side does cause low back pain. He is tender to palpation in the paraspinal muscles at approximately L4-5 and more so off to the left. He has severe limited range of motion of the lumbar spine, especially in extension which causes severe low back pain. Forward flexion gives him some re lief. Toes are downgoing on Babinski bilaterally, and he has no clonus. RADIOGRAPHIC STUDIES: MRI shows right greater than left facet arthropathy L4-5 which is severe, a le ft L4-5 intraforaminal synovial facet cyst with compression of the left L4 nerve root. IMPRESSION: 1. Chronic low back pain with severe facet arthropathy L4-5 and facet joint syndrome. 2. Left L4-5 intraforaminal synovial cyst. PLAN: The patient has elected to undergo surgery. This will be in the form of an L4-5 laminectomy, decompression, foraminotomies, facet cyst excision, transforaminal lumbar interbody fusion with poste rior fusion and instrumentation. Potential risks, benefits, and possible complications have been tho roughly discussed including, but not limited to, dural tear with CSF leak, meningitis, nerve root inj ury, partial or complete paralysis, infection, need for further surgery, footdrop, lack of improvemen t of symptomatology, DVT, PE, pneumonia, stroke, heart attack, hemorrhage, blindness, and . Aparna wade's questions have been answered thoroughly. No guarantees have been given in regard to surgical outcome. Patient will be n.p.o. after midnight tonight. Copy requested to: [facility] /[id number]/JOSÉ MANUELL
[2017-09-21] MEDS ORDERED: ceFAZolin 2 GM/SWFI 2 GM/20 ML SYR IVP ONE (06:15)
[2017-09-21] MEDS ORDERED: GABAPENTIN 300 MG CAP PO ONE (06:15)
[2017-09-21] MEDS ORDERED: ACETAMINOPHEN 500 MG TAB PO ONE (06:15)
[2017-09-21] MEDS ORDERED: LR 1,000 ML IV ONE (06:16)
[2017-09-21] MEDS ORDERED: THROMBIN (BOVINE) 20,000 UNIT VIAL TP ONE (06:45)
[2017-09-21] MEDS ORDERED: BUPIVACAINE 0.25% 30 ML SDV ONE (06:46)
[2017-09-21] MEDS ORDERED: BACITRACIN 50,000 UNITS/10 ML SYR IRR ONE (06:46)
[2017-09-21] MEDS ORDERED: CITRATE DEXTROSE SOLN 500 ML BAG ONE ×2 (06:47→06:58)
[2017-09-21] MEDS ORDERED: AVITENE POWDER 1 GM JAR TP ONE (06:48)
--- NOTE | 2017-09-21 07:10 | PDANEPAE ---
ANE History of Present Illness 67 yo male with back pain for L4/5 fusion. ANE Past Medical History - Cardiovascular History Hx Hypertension: Yes Hx Arrhythmias: No Hx Chest Pain: Yes Hx Coronary Artery / Peripheral Vascular Disease: Yes Hx CHF / Valvular Disease: No Hx Palpitations: No Cardiovascular History Comment: borderline htn. cad - non-obstructive per cath. admitted for cp in 12/2016 s/p day after pain injection with dent - pt had [place] at that time, no obstructing CAD, pt on amlodipine for borderline HTN and possible coronary vasospasm?? - Pulmonary History Hx COPD: No Hx Asthma/Reactive Airway Disease: No Hx Recent Upper Respiratory Infection: No Hx Oxygen in Use at Home: No Hx Sleep Apnea: Yes Sleep Apnea Screening Result - Last Documented: Positive Pulmonary History Comment: evangelina positive- doesn't use cpap or 02 - Neurologic History Hx Cerebrovascular Accident: No Hx Seizures: No Hx Dementia: No Neurologic History Comment: neck surgery x2. ddd - Endocrine History Hx Diabetes: No Hypothyroid: No - Renal History Hx Renal Disorders: Yes Renal History Comment: bph. hx of kidney stones. bladder surgery x3 - Liver History Hx Hepatic Disorders: No - Neurological & Psychiatric Hx Hx Neurological and Psychiatric Disorders: Yes Neurological / Psychiatric History Comment: depression. insomnia. anxiety. chronic pain - Cancer History Hx Cancer: No - Congenital Disorder History Hx Congenital Disorders: No - GI History Hx Gastrointestinal Disorders: No Gastrointestinal History Comment: GERD - Other Health History Other Health History: Gout. wears glasses - Chronic Pain History Chronic Pain: Yes (upper back and neck) - Surgical History Prior Surgeries: 04/05/14 perc neph and kidney stone extraction with Vickey. 08/30 laser incision of bladder neck contracture with Vickey. 12/01/12 left ureteral stent removed with green light laser procedure with Vickey. anterior lumbar fusion with bone graft. carpal tunnel release-right 2006. cervical spine surgery 11/2003 c5-6, c6-7 anterior cervical discectomy/ fusion nonunion c6 -7. removal of hardware/ fusion c5-7 04/2006 ANE Review of Systems Review of Systems: - Exercise capacity METS (RN): 4 METS - Systems Cardiac: Reports: no symptoms Gastrointestinal: Reports: no symptoms Muscolosketal: Reports: neck pain ANE Patient History - Allergies Allergies/Adverse Reactions: morphine Allergy (Intermediate, Verified 09/07/17 15:20) gives me a bad headache hydromorphone HCl [From Dilaudid] Allergy (Verified 09/07/17 15:20) gives me a bad headache - Home Medications Home Medications: Allopurinol [Allopurinol 300 MG (RX)] 300 mg PO DAILY 03/30/14 [Last Taken 01/13] oxyCODONE CR [Oxycontin] 20 mg PO BID 03/30/14 [Last Taken 01/13/17 07:00] Zolpidem Tartrate [Ambien 10 mg] 5 mg PO HS 01/14/17 [Last Taken 01/13/17] oxyCODONE IR [Oxycodone Ir (*)] 15 mg PO QID 01/14/17 [Last Taken 01/13/17] Acetaminophen [Tylenol 325mg (*)] 650 mg PO BID PRN 08/24/17 [Last Taken Unknown ] Cyclobenzaprine [Flexeril 10 MG (*)] 10 mg PO TID 08/24/17 [Last Taken Unknown] Ibuprofen [Motrin (*)] 400 mg PO BID 08/24/17 [Last Taken Unknown] - NPO status NPO Status: no food or drink >8 hours - Anes Hx Anes Hx: no prior problems - Smoking Hx Smoking Status: Never smoked - Family Anes Hx Family Anes Hx: neg - N/A Family Hx Anesthesia Complications: NONE ANE Labs/Vital Signs - Vital Signs Height: 180.34 cm Weight: 92.986 kg ANE Physical Exam - Airway Neck exam: decreased ROM Mallampati Score: Class 2 Mouth exam: normal dental/mouth exam - Pulmonary Pulmonary: clear to auscultation - Cardiovascular Cardiovascular: regular rate and rhythym - ASA Status ASA Status: III ANE Anesthesia Plan Anesthesia Plan: general endotracheal anesthesia
[2017-09-21] MEDS ORDERED: MIDAZOLAM 2 MG/2 ML VIAL IVP ONE (07:13)
--- NOTE | 2017-09-21 07:14 | PDHPUP ---
History & Physical Update H&P update statement: This history and physical update is based on an assessment of the patient which was completed after admission or registration (within 24 hours), but prior to the surgery/procedure. H&P update: H&P reviewed & patient examined, no change in patient's condition since H&P completed
[2017-09-21] MEDS ORDERED: LIDOCAINE 2% 5 ML SDV ONE (07:20)
[2017-09-21] MEDS ORDERED: fentaNYL 250 MCG/5 ML INJ ONE (07:20)
[2017-09-21] MEDS ORDERED: ROCURONIUM 50 MG/5 ML VIAL ONE ×2 (07:20→08:25)
[2017-09-21] MEDS ORDERED: DEXAMETHASONE 4 MG/ML VIAL ONE (07:20)
[2017-09-21] MEDS ORDERED: PROPOFOL/EMULSION 500 MG/50 ML BOTTLE IV ONE (07:20)
[2017-09-21] MEDS ORDERED: DEXMEDETOMIDINE HCL 400 MCG in NS 100 ML IV SCH (07:30)
[2017-09-21] MEDS ORDERED: LIDOCAINE/DEXTROSE 500 ML IV ONE (07:30)
[2017-09-21] MEDS ORDERED: ONDANSETRON 4 MG/2 ML VIAL IVP PRN ×2 (07:50→11:55)
[2017-09-21] MEDS ORDERED: ONDANSETRON DISINTEGRATING 4 MG TAB PO PRN (07:50)
[2017-09-21] MEDS ORDERED: diphenhydrAMINE 25 MG CAP PO PRN (07:50)
[2017-09-21] MEDS ORDERED: POLYETHYLENE GLYCOL 3350 17 GM PKT PO PRN (07:50)
[2017-09-21] MEDS ORDERED: MAGNESIUM HYDROXIDE 30 ML UDCUP PO PRN (07:50)
[2017-09-21] MEDS ORDERED: BISACODYL 10 MG SUPP PR PRN (07:50)
[2017-09-21] MEDS ORDERED: LACTULOSE 20 GM/30 ML UDCUP PO PRN (07:50)
[2017-09-21] MEDS ORDERED: DIAZEPAM 10 MG/2 ML SYR IVP PRN (08:00)
[2017-09-21] MEDS ORDERED: NS W/ 20 KCl/L 1,000 ML IV SCH (08:00)
[2017-09-21] MEDS ORDERED: NITROGLYCERIN 0.4 MG BTL SL PRN (08:01)
[2017-09-21] MEDS ORDERED: fentaNYL 100 MCG/2 ML INJ ONE ×3 (08:15→14:09)
[2017-09-21] MEDS ORDERED: epHEDrine SULFATE 10 MG/ML SYR ONE ×2 (08:37)
[2017-09-21] MEDS ORDERED: PHENYLEPHRINE HCL 100 MCG/ML SYR ONE ×4 (09:18→11:27)
[2017-09-21] MEDS ORDERED: DIAZEPAM 10 MG/2 ML SYR ONE (09:31)
[2017-09-21] MEDS ORDERED: ceFAZolin 1 GM VIAL ONE (10:29)
[2017-09-21] MEDS ORDERED: morphINE PF 10 MG/10 ML INJ ONE (10:43)
[2017-09-21] MEDS ORDERED: LR 500 ML IV PRN (11:55)
[2017-09-21] MEDS ORDERED: ALBUTEROL 3 ML DEYVIAL IH PRN (11:55)
[2017-09-21] MEDS ORDERED: PROMETHAZINE HCL 25 MG/ML INJ IVP PRN (11:55)
[2017-09-21] MEDS ORDERED: NALOXONE HCL 0.4 MG/ML INJ IVP PRN ×2 (11:55)
[2017-09-21] MEDS ORDERED: ACETAMINOPHEN 500 MG TAB PO PRN (11:55)
[2017-09-21] MEDS ORDERED: oxyCODONE IR 15 MG TAB PO PRN (11:57)
[2017-09-21] MEDS ORDERED: morphINE PF 5 MG/10 ML INJ IT ONE ×2 (12:45→15:30)
--- NOTE | 2017-09-21 12:53 | POSTANESTH ---
Post Anesthetic Evaluation Cardiovascular Status: Normal, Stable Respiratory Status: Normal, Stable Level of Consciousness/Mental Status: Can Participate in Eval, Moderately Sleepy Pain Control: Adequate, Prn Tx Ordered (Reports pain in back, but still very somnolent. Pt will need to be a little more awake before administering narcotics.) Nausea/Vomiting Control: Adequate, Prn Tx Ordered Complications Possibly Related to Anesthesia: Other, See Comments (Lip lac.)
[2017-09-21] MEDS ORDERED: fentaNYL 100 MCG/2 ML INJ IT ONE ×2 (13:00→15:30)
[2017-09-21] MEDS: fentaNYL 100 MCG/2 ML INJ IVP PRN ×3 (13:01→14:12)
--- NOTE | 2017-09-21 13:04 | POSTOPPROG ---
Post Op Note Date of Operation: 09/21/17 Surgeon: Ellie Aguilar Liability Claims Examiner: Raffi Crocker SA Anesthesiologist: Kelley Wilkerson Anesthesia: GET(General Endotracheal) Pre-op Diagnosis: severe L4-5 facet jt OA, chronic pain L spine Post-op Diagnosis: same Indication: severe facet pain bilateral L4-5 Procedure: L4-5 lami, tlif, post fusion, instrumentation Findings: severe L greater than R L4-5 Facet OA, Left L4-5 dacia. facet cyst Inf/Abcess present in the surg proc area at time of surgery?: No Depth: Deep Incisional (Fascial) EBL: 125 cc Total fluids administered: 2200 cc Drains: Gordon Alba
[2017-09-21] MEDS ORDERED: oxyCODONE IR 5 MG TAB ONE (13:18)
[2017-09-21] MEDS: oxyCODONE IR 5 MG TAB PO PRN ×3 (13:29→23:56)
[2017-09-21] MEDS: HYDROmorphONE/DILAUDID 1 MG/ML INJ IVP PRN (15:00)
[2017-09-21] MEDS: ALLOPURINOL 300 MG TAB PO SCH (16:09)
[2017-09-21] MEDS: ACETAMINOPHEN 500 MG TAB PO SCH ×2 (16:09→21:35)
[2017-09-21] MEDS: ATORVASTATIN CALCIUM 20 MG TAB PO SCH (16:09)
[2017-09-21] MEDS: ceFAZolin 2 GM/DEXTROSE 100 ML IV SCH ×2 (17:03→23:56)
[2017-09-21] MEDS: morphINE SR 15 MG TAB PO SCH ×2 (17:05→21:35)
[2017-09-21] MEDS: POLYETHYLENE GLYCOL 3350 17 GM PKT PO SCH ×2 (17:05→21:36)
[2017-09-21] MEDS: SENNOSIDES/DOCUSATE SODIUM TAB PO SCH ×2 (17:06→21:35)
[2017-09-21] MEDS ORDERED: NON-FORMULARY NEW DRUG (Zolpidem Tartrate [Ambien 10 Mg] 5 MG) PO SCH (21:00)
[2017-09-21] MEDS: ZOLPIDEM TARTRATE 5 MG TAB PO SCH (21:35)
[2017-09-21] MEDS: DIAZEPAM 5 MG TAB PO PRN (22:29)
--- NOTE | 2017-09-22 03:37 | GOP ---
[f rep st] OPERATIVE REPORT DATE OF OPERATION: 09/21/2017 SURGEON: Ellie Bui MD BALANCE WHEEL FACER: Mic Crocker SA ANESTHESIA: General endotracheal intubation. ANESTHESIOLOGIST: Kelley Blackwell MD PREOPERATIVE DIAGNOSIS: 1. Severe L4-5 facet joint arthropathy and low back pain. 2. Left L4-5 intraforaminal synovial facet joint cyst. POSTOPERATIVE DIAGNOSIS: 1. Severe L4-5 facet joint arthropathy and low back pain. 2. Left L4-5 intraforaminal synovial facet joint cyst. PROCEDURE PERFORMED: L4-5 laminectomy, bilateral facetectomy, excision of left L4-5 intraforaminal s ynovial facet cyst, posterolateral arthrodesis, transforaminal lumbar interbody fusion and posterior fusion with instrumentation L4-L5, use of local autogenous bone graft and morselized allograft and si ze medium bone morphogenic protein. Also patient had 0.3 mg of intrathecal Duramorph and 25 mcg of i ntrathecal fentanyl for postoperative pain control. FINDINGS: Severe osteoarthritis bilateral L4-5 facet joints, left greater than right, left intrafora jannet synovial facet cyst. ESTIMATED BLOOD LOSS: 125 cc. INDICATIONS: The patient is a pleasant 67-year-old gentleman well known to my practice. He has had a many-year history of ongoing chronic low back pain which has escalated over the past 2-3 years. He has tried physical therapy extensively, had epidural steroid injections, facet joint injections, rad iofrequency rhizotomies, use of a back brace, anti-inflammatories and pain management. He has ultima tely elected to undergo surgery. His pain is primarily back pain, but occasionally he gets some leg symptoms bilaterally. He denies any loss of bowel or bladder control. No psychological issues were identified, and he is a nonsmoker. No guarantees were given in regard to surgical outcome. Potentia l risks, benefits, and possible complications were thoroughly discussed including, but not limited to , dural tear with CSF leak, meningitis, nerve root injury, partial or complete paralysis, infection, junctional breakdown, nonunion, breakage or pullout of internal fixation, lack of improvement in symp tomatology, need for further surgery, DVT, PE, pneumonia, stroke, heart attack, hemorrhage, blindness , and . DESCRIPTION OF PROCEDURE: After obtaining both written and verbal consent from the patient, he was b rought to the operating room where he underwent general endotracheal intubation. The patient receive d IV antibiotics in the form of Ancef. Ireland catheter was placed. The patient was rolled to the pro ne position on the Gordon table. All 4 extremities were padded well. The face and eyes were padded per the anesthesiologist. A lateral fluoroscopic x-ray was obtained for localization using an 18-ga uge needle. The lumbar spine was prepped and draped in the normal sterile fashion. A timeout was pe rformed for the entire operating room team confirming patient's name, date of , planned surgical procedure including level. After a sterile prep and drape, a midline longitudinal incision measuring about 3 inches in length us ing a 10-blade knife was performed. The incision was brought down through skin and subcutaneous tiss ues into the overlying dorsal fascia. Paraspinal muscles were stripped in a subperiosteal fashion bi laterally. The transverse processes of L4 were identified and stripped of their subperiosteal attach ments. The L5 transverse processes were very large and had the appearance more of the sacral ala as evidenced also on basic x-ray preoperatively. Intraoperative x-ray did confirm localization of the s pinous process of L5. It should be mentioned that intraoperative somatosensory evoked potentials, mo tor evoked potentials, and EMGs were set up and performed ahead of time. Baseline potentials were no rmal. Also at this time, a reference frame for the O-arm was placed on the spinous process of L3. T hen an AP and lateral fluoroscopic view were obtained and a final 3-dimensional spin was obtained wit h the O-arm. This was for pedicle screw guidance. Then, using the basic anatomic landmarks of the m idline of the transverse process and the intersection of the lateral border of the facet joint at L4, pedicle screw site was initially identified starting on the left, and a 3 mm drill bit was used to s tart a bar pilot hole. Then, the gearshift was used under O-arm guidance to palpate into the pedicle, an d then this stimulated to 20 milliamps nicely. A ball-tip probe was then used to palpate the propose d site, and this showed good bone circumferentially around the entire depth. Then, the left L5 was p erformed in a similar fashion, and this also stimulated to 20 milliamps and had good bone palpation c ircumferentially. Decortication with a rat-toothed rongeur was performed of the transverse processes of L4 and L5, and the facet joint was also decorticated. Crushed cancellous bone graft mixed with d emineralized bone matrix was packed in the posterolateral position and then a 6.5 x 45 mm Mercury Cla ssic pedicle screw was placed on the left at L4 with good purchase. It stimulated to 20 milliamps. The left L5 screw was placed, and this was 6.5 x 45 mm as well, and it stimulated to 20 milliamps aga in. Then, the same was performed on the right. The right L4 screw went in well without any problems and was 6.5 x 45 mm. It stimulated on the screw to 20 milliamps. The right L5 screw appeared to be slightly cephalad and possibly slightly within the disc space and initially stimulated to 20 milliam ps, but after an O-arm spin was performed, I decided to replace it. Instead, I placed a 6.5 x 40 mm screw in the same hole, and this stimulated again to 20 milliamps. When I palpated the hole with a b all-tipped probe, there was no evidence of soft tissue palpation. It did have good purchase. Then, at this time, an O-arm spin was performed, and this showed good position of the pedicle screws bilate rally at L4 and L5. Two 55 mm rods were then utilized and one was placed on each side and 4 locking caps were utilized to tighten down the rods into the screw heads. A torque and counter-torque wrench were then used to do a final tightening of these locking caps. Decortication on the right had been also performed, and bone had been packed in a posterolateral position as well prior to placement of t he screws. Then under loupe magnification, a rongeur was used to remove the proximal half of the L5 spinous process and the inferior 2/3 of the L4 spinous process, and local bone graft was saved and cl eaned for later usage. A 5 mm round bur was then used to decorticate the lamina, and the facet joint s were removed bilaterally at L4-5. A Hinds was used to palpate in the epidural space and then a c ombination of 3 and 4 mm Kerrisons were utilized to complete the laminectomy and decompress the midli ne canal as well as get out into the neural foramen. On the left at L4-5, there was a small to mediu m sized intraforaminal synovial facet cyst emanating obviously from the facet joint. There was also splaying of the facet joint identified which suggested instability. The synovial facet cyst was very carefully and meticulously removed, and it had been somewhat adhered to the exiting left L4 nerve ro ot. Care was taken to protect the nerve root at all times. There were no changes in spinal cord mon itoring during this. Initially the left side was addressed, and a Love nerve root retractor was used to gently retract the midline thecal sac and another Love nerve root retractor was used to protect t he exiting L4 nerve root. Then at this time, under loupe magnification, a 15-blade knife was used to create a box annulotomy at the disc space. The disc was only mildly degenerative, but more importan tly, the facet joints were severely arthritic, left greater than right. The disc was removed with di fferent sized pituitaries, both straight and up-biting. Zafar were then utilized up to a size 13 m m. Care was taken to protect the cauda equina and the exiting nerve roots at all times. A trial was utilized measuring 13 mm and had an excellent fit. Therefore, a 10 x 27 x 13 mm lordosed Lucent Ti- Adams porous-coated PEEK cage was chosen of that size and packed with local autogenous bone graft mixe d with demineralized bone matrix. Then while protecting the midline thecal sac and the exiting left L4 nerve root, the PEEK cage was tamped into position and recessed about 3 mm. A Hinds was used to palpate it, and this showed excellent position of the PEEK bone graft cage. Again, there were no ch anges in spinal cord monitoring. Then the right side was performed. Again, this right L4-5 facet phong int was severely arthritic and showed splaying of the facet joint itself. After it had been removed and the neural foramen was fully decompressed using a 3 mm Kerrison, the exiting right L4 nerve root was identified and protected with a Love nerve root tractor, and a second retractor was used to prote ct the midline thecal sac. Again, a box annulotomy was performed with a 15-blade knife. The right s susan of the disc was completely removed, but the anterior longitudinal ligament was kept intact. Tria ls were utilized, and the best fit was a 12 mm trial. Therefore, a 10 x 27 x 12 mm lordosed Lucent T i-Adams PEEK cage was packed with local bone graft and demineralized bone matrix. It was then tamped into position while protecting all the neural structures, and there were no changes in spinal cord mo nitoring. It was recessed about 2-3 mm using a tamp. It was in good position. Then an AP and a lat eral fluoroscopic view were obtained showing good position of the 2 PEEK cages. This was at L4-L5. At this time, 0.3 mg of intrathecal Duramorph and 25 mcg of intrathecal fentanyl were placed in the s ubarachnoid space using a 30-gauge needle for postoperative pain control. It should be noted that th e patient thought he had a morphine allergy, but explained to myself and the anesthesiologist that it was only headache, but no true allergy and therefore we thought it was safe to give Duramorph intrat hecally. It should be noted that there were no anesthetic changes upon injection of that medication. Then, at this time, Gelfoam was placed over the midline thecal sac as well as over the left neural foramen and the right neural foramen at L4-5. A size medium bone morphogenic protein that had been p repared was packed in a posterolateral position at L4-5 bilaterally, and local extra autogenous bone graft was also packed in a posterolateral position. A 10 flat MYRA drain was placed deep to the fascia l layer and sewn in with a 2-0 nylon suture. Sponge and needle count were correct. The wound was cl osed using a #1 Vicryl, 0 Vicryl, and skin tashi. Sterile dressing was applied. Lumbar back brace sorry was placed. The patient was rolled to the supine position. He was extubated in the operating room and brought to the recovery room in satisfactory condition. Ireland catheter had been left in pl bridget. FLUIDS GIVEN: 2200 cc. DRAINS: One MYRA flat drain. IMPLANTS: Spinal Elements Mercury Classic screws and rods as well as Lucent Ti-Adams porous coated PE EK cages. COMPLICATIONS: None. There were no changes in spinal cord monitoring including SSEPs, EMGs and kisha r evoked potentials. POSTOPERATIVE PLAN: Close neurologic observation, close airway observation, PT, OT, and pain control . /[id number]/MODL
[2017-09-22] MEDS: ACETAMINOPHEN 500 MG TAB PO SCH ×3 (06:29→22:03)
[2017-09-22] MEDS: ATORVASTATIN CALCIUM 20 MG TAB PO SCH (08:29)
[2017-09-22] MEDS: ceFAZolin 2 GM/DEXTROSE 100 ML IV SCH ×2 (08:29→16:47)
[2017-09-22] MEDS: ALLOPURINOL 300 MG TAB PO SCH (08:29)
[2017-09-22] MEDS: oxyCODONE IR 5 MG TAB PO PRN ×4 (08:31→20:46)
[2017-09-22] MEDS: POLYETHYLENE GLYCOL 3350 17 GM PKT PO SCH ×3 (08:42→22:04)
[2017-09-22] MEDS: morphINE SR 15 MG TAB PO SCH (08:42)
[2017-09-22] MEDS: SENNOSIDES/DOCUSATE SODIUM TAB PO SCH ×2 (08:42→20:46)
[2017-09-22] MEDS: HYDROmorphONE/DILAUDID 1 MG/ML INJ IVP PRN (11:02)
--- NOTE | 2017-09-22 16:10 | ASMTCMCOM ---
CM Note CM Note Notes: Planned spinal surgery, MD requests C RN/PT set up and pt is agreeable. Allscripts referral sent to [facility] and Latisha notified. CM to follow. Date Signed: 09/22/2017 04:09 PM Electronically Signed By:CARLOS Cabrera
[2017-09-22] MEDS: ZOLPIDEM TARTRATE 5 MG TAB PO SCH (20:46)
[2017-09-23] MEDS: ceFAZolin 2 GM/DEXTROSE 100 ML IV SCH (00:04)
[2017-09-23] MEDS: oxyCODONE IR 5 MG TAB PO PRN ×4 (03:39→20:14)
[2017-09-23] MEDS: ACETAMINOPHEN 500 MG TAB PO SCH ×3 (05:57→21:50)
[2017-09-23] MEDS: SENNOSIDES/DOCUSATE SODIUM TAB PO SCH ×2 (07:48→21:51)
[2017-09-23] MEDS: ATORVASTATIN CALCIUM 20 MG TAB PO SCH (07:48)
[2017-09-23] MEDS: ALLOPURINOL 300 MG TAB PO SCH (07:49)
[2017-09-23] MEDS: DIAZEPAM 5 MG TAB PO PRN ×3 (07:50→20:16)
[2017-09-23] MEDS: POLYETHYLENE GLYCOL 3350 17 GM PKT PO SCH ×3 (07:52→21:51)
[2017-09-23] MEDS: HYDROmorphONE/DILAUDID 1 MG/ML INJ IVP PRN (09:41)
[2017-09-23] MEDS: ZOLPIDEM TARTRATE 5 MG TAB PO SCH (21:49)
[2017-09-23 23:41] VITALS: BP 137/87
[2017-09-24] MEDS: oxyCODONE IR 5 MG TAB PO PRN ×2 (07:16→13:00)
[2017-09-24] MEDS: ACETAMINOPHEN 500 MG TAB PO SCH ×2 (07:16→13:00)
[2017-09-24 07:50] VITALS: PULSE 105; RESP 12; TEMP 98.2; O2SAT 91
[2017-09-24] MEDS: SENNOSIDES/DOCUSATE SODIUM TAB PO SCH (09:10)
[2017-09-24] MEDS: ALLOPURINOL 300 MG TAB PO SCH (09:11)
[2017-09-24] MEDS: POLYETHYLENE GLYCOL 3350 17 GM PKT PO SCH (09:11)
[2017-09-24] MEDS: ATORVASTATIN CALCIUM 20 MG TAB PO SCH (09:11)
[2017-09-24] MEDS: DIAZEPAM 5 MG TAB PO PRN ×2 (09:14→15:09)
--- NOTE | 2017-09-24 12:53 | SOAPPROG ---
SOAP Progress Note Assessment/Plan: Assessment: Doing well POD #1 s/p L4/5 Lami/TLIF pain well controlled This is a Dr. Hammonds patient that we are assuming care of since she is unable to at this time due to extenuating circumstances. Plan: DC MYRA per Dr. Darell MAHER home today after lumbar xrays discussed with Dr. Poon Patient will follow up with [facility] in 7-10 days for a post op appt. 09/24/17 12:53 Subjective: Out of bed, pain well controlled. Denies new numbness tingling or weakness Objective: Vital Signs Temp Pulse Resp BP Pulse Ox 36.8 C 105 H 12 137/87 H 91 L 09/24/17 07:49 09/24/17 07:49 09/24/17 07:49 09/24/17 07:49 09/24/17 07:49 09/23/17 09/24/17 09/25/17 05:59 05:59 05:59 Intake Total 1350 800 Output Total 1160 145 Balance 190 655 Neuro: SAMUEL, sens +LT able to heel and toe stand Incision: CDI. staple in place MYRA 105 ml overnight, 60ml this AM. ICD10 Worksheet Patient Problems: Problems Problem Status Onset Bladder neck obstruction Active Acute coronary syndrome Acute Calculus of kidney and ureter Acute Chest pain Acute
--- NOTE | 2017-09-24 15:58 | ASMTCMCOM ---
CM Note CM Note Notes: PT clears pt and RN Yolanda reports pt has no RN needs, [facility] notified to cancel alert. Pt to d/c home independent, no CM d/c needs identified. Date Signed: 09/24/2017 03:58 PM Electronically Signed By:CARLOS Cabrera
--- NOTE | 2017-09-24 15:59 | ASDISCHSUM ---
Discharge Information Plan Status:Home with No Needs Medically Cleared to Leave: Discharge Date:09/24/2017 03:56 PM CM D/C Disposition:Home, Routine, Self-Care ADT D/C Disposition:Home, Routine, Self-Care Projected Discharge Date:09/23/2017 11:00 AM Transportation at D/C: Discharge Delay Reason: Follow-Up Date:09/23/2017 11:00 AM Discharge Slot: Final Diagnosis: Placement Information Referral Type:*Home Health Care Services Referral ID:[id number] Provider Name: Address 1: Phone Number: Address 2: Fax Number: City: Selection Factors: State: Patient Contact Information Contact Name:BELA Relationship:Son Address: Work Phone: City: [facility] Phone: [facility] Code: Email: Financial Information Financial Class:Juan A Ledezma Primary Plan Desc:[facility]UAN A LIVE [facility] Primary Plan Number:[id number] Secondary Plan Desc: Secondary Plan Number: Assessment Information [facility] CM Progress Note CM Note CM Note Notes: Planned spinal surgery, MD requests [facility] RN/PT set up and pt is agreeable. Allscripts referral sent to [facility] and Nigelrodri notified. CM to follow. Date Signed: 09/22/2017 04:09 PM Electronically Signed By:CARLOS Cabrera [facility] CM Progress Note CM Note CM Note Notes: PT clears pt and RN Yolanda reports pt has no RN needs, [facility] notified to cancel alert. Pt to d/c home independent, no CM d/c needs identified. Date Signed: 09/24/2017 03:58 PM Electronically Signed By:CARLOS Cabrera Intervention Information
== END 2017-09-24 15:56 | disposition home or self-care (01) | DRG 460 ==
LOC: F3N 06:02
PROVIDERS: ADMIT Orthopaedic Surgery Orthopaedic Surgery of the Spine; ATTEND Orthopaedic Surgery Orthopaedic Surgery of the Spine
PROC: 00NY0ZZ Release Lumbar Spinal Cord, Open Approach (ICD-10-PCS; principal; 2017-09-21 07:15)
PROC: 0SG00AJ Fusion of Lumbar Vertebral Joint with Interbody Fusion Device, Posterior Approach, Anterior Column, Open Approach (ICD-10-PCS; principal; 2017-09-21 07:15)
PROC: 4A1004G Monitoring of Central Nervous Electrical Activity, Intraoperative, Open Approach (ICD-10-PCS; principal; 2017-09-21 07:15)
PROC: 0MBD0ZZ Excision of Lower Spine Bursa and Ligament, Open Approach (ICD-10-PCS; principal; 2017-09-21 07:15)
DX: M47.896 Other spondylosis, lumbar region (principal); M12.88 Other specific arthropathies, not elsewhere classified, other specified site; M71.38 Other bursal cyst, other site; I10 Essential (primary) hypertension; I25.10 Atherosclerotic heart disease of native coronary artery without angina pectoris; G47.33 Obstructive sleep apnea (adult) (pediatric); N40.0 Benign prostatic hyperplasia without lower urinary tract symptoms; F32.9 Major depressive disorder, single episode, unspecified; G47.00 Insomnia, unspecified; F41.9 Anxiety disorder, unspecified; G89.29 Other chronic pain; K21.9 Gastro-esophageal reflux disease without esophagitis; M10.9 Gout, unspecified
CPT/HCPCS: 97161-GP; 97165-GO; 97530-GO; 97535-GO; C1713; C1762; J0690; J1100; J1170; J2001; J2274; J2370; J2704; J3010; J7060

== ENCOUNTER → 2017-10-26 | Outpatient (CLI) | payer OTHER, MEDICARE | LOC: FLAB 13:47 | PROVIDERS: ATTEND Orthopaedic Surgery Orthopaedic Surgery of the Spine | DX: Z09 Encounter for follow-up examination after completed treatment for conditions other than malignant neoplasm (principal); Z98.1 Arthrodesis status ==

== ENCOUNTER 2017-11-30 22:34 | Emergency (ER) | payer OTHER, MEDICARE ==
[2017-11-30] MEDS ORDERED: ONDANSETRON 4 MG/2 ML VIAL IVP ONE (22:48)
[2017-11-30] MEDS ORDERED: NS 1,000 ML IV ONE ×2 (22:48→23:37)
[2017-11-30] MEDS ORDERED: HYDROmorphONE/DILAUDID 1 MG/ML INJ IVP ONE (22:48)
--- NOTE | 2017-11-30 22:48 | EDPHY ---
General - History Smoking Status: Never smoked Narrative: PHYSICIAN DOCUMENTATION: The patient was evaluated and managed by the [facility]. My co- signature indicates that I have reviewed this chart and I agree with the findings and plan of care as documented. I am the secondary supervising physician. 12:30 a.m.- I reassessed the patient, he is feeling completely improved after receiving lidocaine and believes that his stone has entered the bladder. He is having no symptoms whatsoever. He will be discharged home. He is on pain medication already as well as Flomax. He has established care are ready with Dr. Hurd of Urology. He can follow-up in the next few days unless he is completely better. (Katherine Mullen) CHIEF COMPLAINT: Flank pain, difficulty urinating HISTORY OF PRESENT ILLNESS: Patient complains of several days history of right flank pain that abruptly worsened at 7:30 p.m. Tonight. It was mild at 1st. Now severe. Associated with difficulty urinating and incomplete urination. Does have a history of left -sided nephrolithiasis status post lithotripsy last year with Dr. Hurd. He has some pain that radiates into the right side of the abdomen. No fever. No chills. No trauma or injury. No midline tenderness of the back. No lower extremity complaints. No other associated complaints or modifying factors. REVIEW OF SYSTEMS: Ten systems reviewed and are negative unless otherwise noted in the HPI PCP: [facility] in [facility] SPECIALISTS: Dr. Hurd, urology PAST MEDICAL HISTORY: BPH, spinal stenosis, nephrolithiasis, gout PAST SURGICAL HISTORY: L4-L5 fusion September 24, 2017 FAMILY HISTORY: Noncontributory EXAMINATION General Appearance: Alert, no distress, in obvious pain with no position of comfort Head: normocephalic, atraumatic Eyes: Pupils equal and round, no conjunctival pallor or injection ENT, Mouth: Mucous membranes moist Neck: Normal inspection, supple, non-tender Respiratory: Lungs are clear to auscultation. No wheezing, rhonchi or crackles Cardiovascular: Tachycardic rate. Regular rhythm. No murmur Gastrointestinal: Abdomen is soft and nondistended. Moderate right CVA tenderness. No tympany. No rigidity. Back: non-tender, no bony abnormalities Neurological: A&O, nonfocal, normal gait Skin: Warm and dry, no rash Extremities: Nontender, no pedal edema Psychiatric: Mood and affect normal DIFFERENTIAL DIAGNOSES: Including but not limited to renal colic, nephrolithiasis, ureterolithiasis, colitis, muscle spasm, UTI, hydronephrosis MDM: 10:50 p.m. Right-sided flank pain with a presentation that suggest renal colic. Patient is rolling back and forth on the bed. He has tenderness in the right CVA. He has a history of stones status post lithotripsy. Vital signs reveal tachycardia. He is not febrile or tachypneic. I suspect his tachycardia is due to pain as he is in obvious discomfort. IV was being established during my exam. I have ordered laboratory studies, IV pain medications and CT scan to evaluate for renal colic. 11:15 p.m. Notified by radiologist Dr. Germain. CT scan reveals a 5 mm stone in the right distal ureter near the UVJ. Mild hydronephrosis. No other acute findings. I re-evaluated the patient and he is still in significant amount of pain. Upon further review he is on high dose of pain medication due to his back pathology. Dilaudid was given but he informs us that that typically is not effective and is requesting fentanyl. First dose of fentanyl is currently being given during my examination at this time. We will continue to dose of pain medication. Chemistry has not yet returned. 11:45 p.m. Chemistry returns with slightly elevated creatinine 1.5. I have discussed this with Dr. Mullen. She is comfortable with a 1 time dose of 15 mg of Toradol. Additionally I have ordered lidocaine from our alternative medications. We have continued to administer IV fentanyl as well. 11:50 p.m. Patient re-evaluated. His pain has minimally improved but it is starting to improve. I informed him that we will be proceeding with Toradol and lidocaine in addition to the narcotic as needed. He has now provided a urine sample at this time the will be sent for urinalysis. 12:00 a.m. Case discussed with Dr. Mullen. She will assume care of the patient at this time. At this time urinalysis is pending as pain control. He is starting to improve with the patient be to be discharged home later. His vital signs are normal and he is in no acute distress. Please see her note for final disposition. SUPERVISION: Patient was independently examined, but I discussed the case with my secondary supervising physician Dr. Mullen ([facility]) - Objective Vital Signs: Initial Vital Signs Heart Rate 112 H 11/30/17 22:35 Respiratory Rate 20 11/30/17 22:35 Blood Pressure 147/116 H 11/30/17 22:35 O2 Sat (%) 93 11/30/17 22:35 O2 Delivery Mode Room Air Allergies/Adverse Reactions: No Allergies Allergy (Verified 11/30/17 22:39) Home Medications: Medication Instructions Recorded Allopurinol [Allopurinol 300 MG 300 mg PO DAILY 03/30/14 (RX)] Atorvastatin Calcium [Lipitor 20 20 mg PO DAILY #30 tab 01/15/17 mg (*)] Nitroglycerin [Nitrostat 0.4 mg 0.4 mg SL Q5M PRN #1 btl 01/15/17 (*)] Acetaminophen [Tylenol ES 500 mg 1,000 mg PO Q8HRS tab 09/24/17 (*)] Diazepam [Valium 5 MG (*)] 5 mg PO Q6HRS PRN tab 09/24/17 Polyethylene Glycol 3350 [Miralax 17 gm PO TID pkt 09/24/17 17 gm (*)] Sennosides/Docusate Sodium 1 - 2 tab PO BID tab 09/24/17 [Senokot-S] oxyCODONE CR [Oxycontin] 40 mg PO TID #60 tab 09/24/17 oxyCODONE IR [Oxycodone Ir (*)] 10 mg PO Q4HRS PRN #60 tab 09/24/17 Ambien 12/02/17 Amlodipine Besylate 12/02/17 Movantik 12/02/17 Laboratory Results: Laboratory Results 11/30/17 22:50 11/30/17 22:50 Medications Given: Discontinued Medications Fentanyl (Sublimaze) 100 mcg IVP EDNOW ONE Stop: 11/30/17 23:17 Last Admin: 11/30/17 23:20 Dose: 100 mcg Fentanyl (Sublimaze) 200 mcg IVP EDNOW ONE Stop: 11/30/17 23:33 Last Admin: 11/30/17 23:33 Dose: 200 mcg Hydromorphone HCl (Dilaudid) 1 mg IVP EDNOW ONE Stop: 11/30/17 22:49 Last Admin: 11/30/17 23:00 Dose: 1 mg Sodium Chloride (Ns) 1,000 mls @ 0 mls/hr IV EDNOW ONE; Wide Open PRN Reason: Protocol Stop: 11/30/17 22:49 Last Admin: 11/30/17 23:00 Dose: 1,000 mls Sodium Chloride (Ns) 1,000 mls @ 0 mls/hr IV ONCE ONE PRN Reason: Wide Open Stop: 11/30/17 23:38 Last Admin: 11/30/17 23:38 Dose: 1,000 mls Lidocaine HCl 100 mg/ Sodium (Chloride) 110 mls @ 600 mls/hr IV EDNOW ONE Stop: 11/30/17 23:54 Last Admin: 12/01/17 00:23 Dose: 110 mls Ketorolac Tromethamine (Toradol) 15 mg IVP EDNOW ONE Stop: 11/30/17 23:45 Last Admin: 12/01/17 00:01 Dose: 15 mg Ondansetron HCl (Zofran) 4 mg IVP EDNOW ONE Stop: 11/30/17 22:49 Last Admin: 11/30/17 23:00 Dose: 4 mg Tamsulosin HCl (Flomax) 0.4 mg PO EDNOW ONE Stop: 11/30/17 23:11 Last Admin: 11/30/17 23:13 Dose: 0.4 mg Departure - Departure Disposition: Home, Routine, Self-Care Clinical Impression: Renal colic on right side, Ureteral stone with hydronephrosis Condition: Good Instructions: Renal Colic (ED), Ureteral Stones (ED) Referrals: Duy Hurd MD [Medical Doctor] - As per Instructions
[2017-11-30 23:04] LABS: PLATELET COUNT 300 10^3/uL (150-400)
[2017-11-30] MEDS ORDERED: TAMSULOSIN HCL 0.4 MG CAP PO ONE (23:10)
[2017-11-30] MEDS ORDERED: HYDROmorphONE/DILAUDID 1 MG/ML INJ ONE (23:11)
[2017-11-30] MEDS ORDERED: fentaNYL 100 MCG/2 ML INJ IVP ONE ×2 (23:16→23:32)
[2017-11-30] MEDS ORDERED: fentaNYL 100 MCG/2 ML INJ ONE (23:30)
[2017-11-30] MEDS ORDERED: KETOROLAC 15 MG/1 ML SDV IVP ONE (23:44)
[2017-11-30] MEDS ORDERED: LIDOCAINE 1% 100 MG in NS 100 ML IV ONE (23:44)
[2017-12-01 00:52] VITALS: BP 134/77; PULSE 74; RESP 16; TEMP 97.9; O2SAT 96
== END 2017-12-01 00:52 | disposition home or self-care (01) ==
DX: N20.1 Calculus of ureter (principal); N13.30 Unspecified hydronephrosis; E86.9 Volume depletion, unspecified
CPT/HCPCS: 74176; 96361; 96365; 96375; 99285; J1170; J1885; J2405; J3010

== ENCOUNTER 2017-12-03 11:55 | Day surgery (SDC) | payer OTHER, MEDICARE ==
[2017-12-03] MEDS ORDERED: LR 1,000 ML IV ONE (12:05)
[2017-12-03] MEDS ORDERED: IOPAMIDOL (ISOVUE-300) 150 ML BTL ONE (12:35)
[2017-12-03] MEDS ORDERED: LIDOCAINE 2% JELLY 20 ML (UROJECT) ONE (12:35)
[2017-12-03] MEDS ORDERED: ceFAZolin 2 GM/SWFI 2 GM/20 ML SYR IVP ONE (12:55)
--- NOTE | 2017-12-03 13:08 | GHP ---
[f rep st] PREOP HISTORY AND PHYSICAL DATE OF ADMISSION: 12/03/2017 ADMISSION DIAGNOSIS: Right ureteral calculus with hydronephrosis. HISTORY OF PRESENT ILLNESS: This is a 67-year-old gentleman who had an acute onset of right abdomina l and flank pain. He realized it was a ureteral stone and had CT scan in the emergency room that rev ealed this, so he is admitted for ureteroscopy. PAST SURGICAL HISTORY: Back surgery, vasectomy, and laser prostatectomy. PAST MEDICAL HISTORY: Kidney stones, urethral stricture, hypogonadism, and hypertension. MEDICATIONS: Diazepam, Cialis, Ambien, allopurinol, Advil, oxycodone, and OxyContin. ALLERGIES: Dilaudid and morphine. FAMILY HISTORY: Positive for kidney stones, diabetes, and hypertension. SOCIAL HISTORY: Alcohol use daily. Nonsmoker. REVIEW OF SYSTEMS: Negative cardiac, respiratory, GI, and endocrine. PHYSICAL EXAMINATION: VITAL SIGNS: Stable. CHEST: Clear. HEART: Regular rate and rhythm. ABDOM EN: Normal with no organomegaly, rebound, or guarding. EXTREMITIES: Lower extremities are normal. PLAN: He is admitted for a right ureteroscopy. /[id number]/MODL
[2017-12-03] MEDS ORDERED: PROPOFOL/EMULSION 500 MG/50 ML BOTTLE IV ONE ×2 (13:13→14:06)
[2017-12-03] MEDS ORDERED: fentaNYL 100 MCG/2 ML INJ ONE ×2 (13:14→14:11)
[2017-12-03] MEDS ORDERED: MIDAZOLAM 2 MG/2 ML VIAL IVP ONE (13:21)
[2017-12-03] MEDS ORDERED: MIDAZOLAM 2 MG/2 ML VIAL ONE (13:23)
[2017-12-03] MEDS ORDERED: ceFAZolin 2 GM/SWFI 20 ML SYR IVP ONE (13:23)
--- NOTE | 2017-12-03 14:28 | POSTOPPROG ---
Post Op Note Date of Operation: 12/03/17 Surgeon: Duy Hurd Anesthesiologist: Martha Anesthesia: GET(General Endotracheal) Pre-op Diagnosis: ureterolithiasis Procedure: ureteroscopy Inf/Abcess present in the surg proc area at time of surgery?: No EBL: Minimal Drains: Other (rt stent) Specimen(s): dictated
--- NOTE | 2017-12-03 14:38 | GOP ---
[f rep st] OPERATIVE REPORT DATE OF OPERATION: 12/03/2017 SURGEON: Duy Hurd MD PREOPERATIVE DIAGNOSIS: Right ureteral calculus, hydronephrosis. POSTOPERATIVE DIAGNOSIS: Right ureteral calculus, hydronephrosis. PROCEDURE PERFORMED: Cystoscopy, retrograde ureteral pyelogram, dilation of the ureter, ureteroscopy with laser lithotripsy, extraction of stone, and placement of 4.7 multi-length stent. FINDINGS: DESCRIPTION OF PROCEDURE: Underwent general anesthesia. Prepped and draped in the normal sterile fas hion in the dorsal lithotomy position. Urethra was normal. He did have a bladder neck contracture t hat we had known about. Right ureteral orifice was cannulated and noted the distal ureteral stone. A guidewire was passed up beyond the stone. The inner working part of a ureteral access sheath was us ed to dilate the intramural ureter. I was able to go in with the scope and fragment and extract the stone fragments. He did have a small tear at the ureter where the stone was and basically he woke up during surgery and with motion had the problem. After extraction of the stone, I visualized the uret er and felt there was no disruption total of it. With a small amount of mucosal disruption noted, I e lected to place a 4.7 multi-length stent that curled in the renal pelvis, curled in the bladder. The string was left attached because the patient requested not having a stent. I figured the string wou ld be the best way to extract it later on. His bladder was emptied. Uro-Jet placed to the urethra. Olimpia olvera tolerated the procedure well. Stone sent for analysis. He will be discharged home to have follow up with me in the office on Wednesday. /[id number]/MODL
--- NOTE | 2017-12-03 14:57 | PDANEPAE ---
ANE History of Present Illness 67 year old male with R ureteral stone. History of chronic pain s/p spine fusion 10/03. ANE Past Medical History - Cardiovascular History Hx Hypertension: No Hx Arrhythmias: No Hx Chest Pain: Yes Hx Coronary Artery / Peripheral Vascular Disease: No Hx CHF / Valvular Disease: No Hx Palpitations: No Cardiovascular History Comment: borderline htn. cad - non-obstructive per cath. admitted for cp in 12/2016 -s/p day after pain injection - pt had NJ at that time,. no obstructing CAD - Pulmonary History Hx COPD: No Hx Asthma/Reactive Airway Disease: No Hx Recent Upper Respiratory Infection: No Hx Oxygen in Use at Home: No Hx Sleep Apnea: Yes Sleep Apnea Screening Result - Last Documented: Positive Pulmonary History Comment: HX - evangelina positive- NO CPAP - Neurologic History Hx Cerebrovascular Accident: No Hx Seizures: No Hx Dementia: No Neurologic History Comment: neck surgery x2. ddd - Endocrine History Hx Diabetes: No - Renal History Hx Renal Disorders: Yes Renal History Comment: bph. hx of kidney stones. bladder surgery x3 - Liver History Hx Hepatic Disorders: No - Neurological & Psychiatric Hx Hx Neurological and Psychiatric Disorders: Yes Neurological / Psychiatric History Comment: depression. insomnia. anxiety. chronic pain - Cancer History Hx Cancer: No - Congenital Disorder History Hx Congenital Disorders: No - GI History Hx Gastrointestinal Disorders: No Gastrointestinal History Comment: GERD - Other Health History Other Health History: Gout. wears glasses - Chronic Pain History Chronic Pain: Yes (upper back and neck) - Surgical History Prior Surgeries: LAMINECTOMY 09/2017. 04/05/14 perc neph and kidney stone extraction with Vickey. 04/27/13 laser incision of bladder neck contracture with Vickey. 12/01/12 left ureteral stent removed with green light laser procedure with Vickey. anterior lumbar fusion with bone graft. carpal tunnel release-right 2006. cervical spine surgery 11/2003 c5-6, c6-7 anterior cervical discectomy/ fusion nonunion c6-7. removal of hardware/ fusion c5-7 04/2006 ANE Review of Systems Review of systems is: negative Review of Systems: - Exercise capacity METS (RN): 3 METS ANE Patient History - Allergies Allergies/Adverse Reactions: hydromorphone [From Dilaudid] Allergy (Mild, Verified 12/03/17 13:18) Other-Enter Comments morphine Allergy (Mild, Verified 12/03/17 13:18) Other-Enter Comments - Home Medications Home Medications: Allopurinol [Allopurinol 300 MG (RX)] 300 mg PO DAILY 03/30/14 [Last Taken 12/03 06:00] Ambien 12/02/17 [Last Taken 12/02/17 22:00] Amlodipine Besylate 12/02/17 [Last Taken 12/03/17 06:00] Movantik 12/02/17 [Last Taken 12/01/17] oxyCODONE CR [OxyCONTIN] 20 mg PO 12/03/17 [Last Taken 12/03/17 06:00] oxyCODONE IR [Oxycodone Ir (*)] 15 mg PO 12/03/17 [Last Taken 12/03/17 10:00] - NPO status NPO Since - Liquids (Date): 12/03/17 NPO Since - Liquids (Time): 10:00 NPO Since - Solids (Date): 12/02/17 NPO Since - Solids (Time): 18:00 - Smoking Hx Smoking Status: Never smoked - Family Anes Hx Family Hx Anesthesia Complications: NONE ANE Labs/Vital Signs - Vital Signs Blood Pressure: 112/80 Heart Rate: 78 Respiratory Rate: 21 O2 Sat (%): 94 Height: 180.34 cm Weight: 95.254 kg ANE Physical Exam - Airway Neck exam: FROM Mallampati Score: Class 2 Mouth exam: normal dental/mouth exam - Pulmonary Pulmonary: no respiratory distress - Cardiovascular Cardiovascular: regular rate and rhythym - ASA Status ASA Status: II ANE Anesthesia Plan Anesthesia Plan: GA w LMA
[2017-12-03] MEDS ORDERED: OXYCODONE/APAP 5/325 TAB PO PRN (14:58)
[2017-12-03] MEDS ORDERED: LABETALOL HCL 5 MG/ML 20 ML MDV IVP PRN (14:58)
[2017-12-03] MEDS ORDERED: LR 500 ML IV PRN (14:58)
[2017-12-03] MEDS ORDERED: DIAZEPAM 10 MG/2 ML SYR IVP PRN (14:58)
[2017-12-03] MEDS ORDERED: fentaNYL 100 MCG/2 ML INJ IVP PRN (14:58)
[2017-12-03] MEDS ORDERED: NALOXONE HCL 0.4 MG/ML INJ IVP PRN (14:58)
[2017-12-03] MEDS ORDERED: ONDANSETRON 4 MG/2 ML VIAL IVP PRN (14:58)
[2017-12-03] MEDS ORDERED: ALBUTEROL 3 ML DEYVIAL IH PRN (14:58)
--- NOTE | 2017-12-03 14:58 | POSTANESTH ---
Post Anesthetic Evaluation Cardiovascular Status: Normal, Stable Respiratory Status: Normal, Stable Level of Consciousness/Mental Status: Can Participate in Eval Pain Control: Adequate, Prn Tx Ordered Nausea/Vomiting Control: Adequate, Prn Tx Ordered Complications Possibly Related to Anesthesia: None Noted
[2017-12-03 15:03] VITALS: PULSE 59
[2017-12-03 15:33] VITALS: BP 133/91; RESP 16
[2017-12-03 16:09] VITALS: TEMP 97.7
[2017-12-03 16:10] VITALS: O2SAT 96
== END 2017-12-03 16:05 | disposition home or self-care (01) ==
LOC: FSGY 11:55
PROVIDERS: ATTEND Specialist
PROC: 0TF68ZZ Fragmentation in Right Ureter, Via Natural or Artificial Opening Endoscopic (ICD-10-PCS; principal; 2017-12-03 13:00)
PROC: 0T768DZ Dilation of Right Ureter with Intraluminal Device, Via Natural or Artificial Opening Endoscopic (ICD-10-PCS; principal; 2017-12-03 13:00)
PROC: 0TC68ZZ Extirpation of Matter from Right Ureter, Via Natural or Artificial Opening Endoscopic (ICD-10-PCS; principal; 2017-12-03 13:00)
PROC: BT16YZZ Fluoroscopy of Right Ureter using Other Contrast (ICD-10-PCS; 2017-12-03 13:00)
DX: N13.2 Hydronephrosis with renal and ureteral calculous obstruction (principal); N40.0 Benign prostatic hyperplasia without lower urinary tract symptoms; M10.9 Gout, unspecified; I10 Essential (primary) hypertension; I71.2 Thoracic aortic aneurysm, without rupture; G89.29 Other chronic pain; I25.10 Atherosclerotic heart disease of native coronary artery without angina pectoris; F32.9 Major depressive disorder, single episode, unspecified; F41.9 Anxiety disorder, unspecified; M50.30 Other cervical disc degeneration, unspecified cervical region; M51.36 Other intervertebral disc degeneration, lumbar region; M54.16 Radiculopathy, lumbar region; G47.33 Obstructive sleep apnea (adult) (pediatric); E55.9 Vitamin D deficiency, unspecified; I25.2 Old myocardial infarction; Z79.891 Long term (current) use of opiate analgesic; Z87.442 Personal history of urinary calculi; Z98.1 Arthrodesis status
CPT/HCPCS: 52356; 76001; C1758; C1769; C1894; C2625; J0690; J2250; J2704; J3010; Q9967

== ENCOUNTER → 2017-12-29 | Outpatient (CLI) | payer OTHER, MEDICARE | LOC: BHFA 14:00 | PROVIDERS: ATTEND Internal Medicine Cardiovascular Disease | DX: R07.9 Chest pain, unspecified (principal) ==

== ENCOUNTER → 2017-12-31 | Outpatient (CLI) | payer OTHER, MEDICARE | LOC: FIMAGING 11:37 | DX: Z98.1 Arthrodesis status (principal) ==

== ENCOUNTER 2018-02-20 20:40 | Emergency (ER) | payer OTHER, MEDICARE ==
[2018-02-20] MEDS ORDERED: ASPIRIN 81 MG CHEWABLE TAB PO ONE (20:57)
[2018-02-20] MEDS ORDERED: NS 500 ML IV ONE (20:57)
--- NOTE | 2018-02-20 20:59 | CPEKG ---
Heart Rate: 58 RR Interval: 1034 P-R Interval: 152 QRSD Interval: 92 QT Interval: 416 QTC Interval: 409 P [place]: 58 QRS [place]: -32 T Wave [place]: 44 EKG Severity - BORDERLINE ECG - EKG Impression: SINUS RHYTHM EKG Impression: PROBABLE LEFT ATRIAL ABNORMALITY EKG Impression: LEFT AXIS DEVIATION Electronically Signed By: Katherine Mullen 21-Feb-2018 05:29:10
[2018-02-20 21:16] LABS: PLATELET COUNT 312 10^3/uL (150-400)
--- NOTE | 2018-02-20 21:22 | EDPHY ---
H & P Time Seen by Provider: 02/20/18 20:57 HPI/ROS: CHIEF COMPLAINT: Multiple complaints HISTORY OF PRESENT ILLNESS: Patient is a 67-year-old male who presents emergency department multiple complaints. Patient states that he had lumbar fusion in September 2017. Since that time he has had ongoing and chronic low back pain. His symptoms did not improve after surgery. He has been taking OxyContin for his pain. He continues to have significant low back pain. The patient reports that today's had mild increased numbness of his right lower extremity. Prior to his surgery he had some decreased sensation on his right lower extremity you but this is more significant numbness. He has no weakness. No incontinence of urine or stool. The patient also complains of chest pain. He feels as though he has"reflux." The last time he was told he had reflux he was diagnosed with an acute VT. However, during his workup for the acute VT he was told"I have a clean bill of health." Patient's pain began last evening. He states this been constant all day. The patient denies any nausea vomiting. No diaphoresis. No shortness of breath. The patient had no recent cough or fever. Patient also complains of back pain between his scapula. This is severe. It does not radiate. His pain started earlier today. REVIEW OF SYSTEMS: My complete review of systems is negative except as mentioned in the HPI. Past Medical/Surgical History: Includes "heart attack," kidney stone, gout, hypertension, borderline high cholesterol Past surgical history: Includes lumbar fusion Social history: The patient does not smoke or drink alcohol. Smoking Status: Never smoked Physical Exam: 36.4, 128/79, 70, 18, 95% on room air GENERAL: Well-appearing, in no acute distress, alert. HEENT: Eyes normal to inspection, normal pharynx, no signs of dehydration. NECK: No thyromegaly, no lymphadenopathy, supple. RESPIRATORY: Clear to auscultation bilaterally, no rales, rhonchi or wheezing. CVS: Regular rate and rhythm, no rubs, murmurs, or gallops. ABDOMEN: Soft, mild suprapubic tenderness to palpation with no rebound or guarding, nondistended, no organomegaly. BACK: Normal to inspection, no CVA tenderness. SKIN: Normal color, no rash, warm, dry. No pallor. EXTREMITIES: No pedal edema, no calf tenderness, no Homans sign or cords, no joint swelling. NEURO/PSYCH: Higher functions: Alert and Oriented x3. Normal speech and cognition. Normal mood and affect. Cranial nerves: Normal as tested. Cerebellar: Normal as tested. Good finger to nose, good [id number], normal gait. Peripheral exam: Normal motor exam. The patient reports mildly decreased sensation throughout his right lower leg. Normal reflexes. Constitutional: Initial Vital Signs Temperature (C) 36.4 C 02/20/18 20:45 Heart Rate 70 02/20/18 20:45 Respiratory Rate 18 02/20/18 20:45 Blood Pressure 128/79 H 02/20/18 20:45 O2 Sat (%) 95 02/20/18 20:45 O2 Delivery Mode Room Air O2 (L/minute) 2 Allergies/Adverse Reactions: hydromorphone [From Dilaudid] Allergy (Mild, Verified 12/03/17 13:18) Other-Enter Comments morphine Allergy (Mild, Verified 12/03/17 13:18) Other-Enter Comments Home Medications: Medication Instructions Recorded Allopurinol [Allopurinol 300 MG 300 mg PO DAILY 03/30/14 (RX)] Nitroglycerin [Nitrostat 0.4 mg 0.4 mg SL Q5M PRN #1 btl 01/15/17 (*)] Naloxegol Oxalate [Movantik] 12.5 mg PO DAILY PRN 12/02/17 Zolpidem Tartrate [Ambien] 10 mg PO HS 12/02/17 amLODIPine BESYLATE [Norvasc 5 mg 5 mg PO DAILY 12/02/17 (*)] oxyCODONE IR [Oxycodone Ir (*)] 15 mg PO Q4H PRN 12/03/17 Acetaminophen [Tylenol ES 500 mg 1,000 mg PO Q8HRS PRN 02/20/18 (*)] Gabapentin [Neurontin 300 MG (*)] 900 mg PO HS 02/20/18 Multivitamins [Multivitamin (*)] 1 tab PO Q2D 02/20/18 Sennosides/Docusate Sodium 1 - 2 tab PO BID PRN 02/20/18 [Senokot-S] Tamsulosin HCl [Flomax 0.4 MG (*)] 0.4 mg PO HS 02/20/18 Tears/Dextran 70/Hypromellose 1 drop EACHEYE TID PRN 02/20/18 [Natural Balance Tears (*)] Medical Decision Making - Diagnostics Imaging Results: Imaging Impressions Chest X-Ray 02/20/18 20:58 Impression: No acute pulmonary disease. ED Course/Re-evaluation: In the emergency department I discussed possible etiologies with the patient. I answered all his questions. Patient took aspirin at home (4 baby aspirin). An IV was placed. Laboratory studies, EKG and chest x-ray were obtained. Sinus rhythm at 58. Left axis deviation. No ST or T-wave abnormality. I compared this with previous EKG from 01/15/2017 and it is unchanged Chest x-ray: No acute disease noted CBC and chemistry were unremarkable. Troponin is negative. D-dimer is elevated at 0.54. The patient was given Solu-Medrol 125 mg IV for back pain and numbness. I discussed the results with the patient. Because of the elevated D-dimer and back pain a CT angiogram was ordered. CT angiogram chest: Please refer the dictated report by Dr. Jennings. Patient has a normal aorta. No dissection or aneurysm. No PE. No pneumonia. Discussed results with the patient. On recheck he was feeling much better. I do not feel the patient's symptoms are secondary to CVA. I feel like did leg symptoms are more likely to his low back symptoms. He has had previous right leg symptoms. The patient will follow up with his neurosurgeon, Dr. Pimentel. The patient will also follow up with his primary care physician. Differential Diagnosis: My differential includes but is not limited to aortic aneurysm, aortic dissection, ACS, acute VT, pulmonary embolus, pancreatitis, cholecystitis, GERD , peptic ulcer disease, urinary tract infection, pyelonephritis, small-bowel obstruction, perforation, disc herniation, cauda equina syndrome, CVA - Data Points Laboratory Results: Laboratory Results 02/20/18 21:00 02/20/18 21:00 02/20/18 02/20/18 02/20/18 21:00 21:00 21:00 WBC 14.10 10^3/uL H 10^3/uL (3.80-9.50) RBC 5.74 10^6/uL 10^6/uL (4.40-6.38) Hgb 16.4 g/dL g/dL (13.7-17.5) Hct 47.3 % % (40.0-51.0) MCV 82.4 fL fL (81.5-99.8) MCH 28.6 pg pg (27.9-34.1) MCHC 34.7 g/dL g/dL (32.4-36.7) RDW 13.7 % % (11.5-15.2) Plt Count 312 10^3/uL 10^3/uL (150-400) MPV 9.7 fL fL (8.7-11.7) Neut % (Auto) 87.1 % H % (39.3-74.2) Lymph % (Auto) 7.9 % L % (15.0-45.0) [place] % (Auto) 4.3 % L % (4.5-13.0) Eos % (Auto) 0.1 % L % (0.6-7.6) Baso % (Auto) 0.2 % L % (0.3-1.7) Nucleat RBC Rel Count 0.0 % % (0.0-0.2) Absolute Neuts (auto) 12.29 10^3/uL H 10^3/uL (1.70-6.50) Absolute Lymphs (auto) 1.11 10^3/uL 10^3/uL (1.00-3.00) Absolute Monos (auto) 0.60 10^3/uL 10^3/uL (0.30-0.80) Absolute Eos (auto) 0.02 10^3/uL L 10^3/uL (0.03-0.40) Absolute Basos (auto) 0.03 10^3/uL 10^3/uL (0.02-0.10) Absolute Nucleated RBC 0.00 10^3/uL 10^3/uL (0-0.01) Immature Gran % 0.4 % % (0.0-1.1) Immature Gran # 0.05 10^3/uL 10^3/uL (0.00-0.10) D-Dimer 0.54 ug/mLFEU H ug/mLFEU (0.00-0.50) Sodium 140 mEq/L mEq/L (135-145) Potassium 3.9 mEq/L mEq/L (3.5-5.2) Chloride 105 mEq/L mEq/L (97-110) Carbon Dioxide 21 mEq/l L mEq/l (22-31) Anion Gap 14 mEq/L mEq/L (8-16) BUN 19 mg/dL mg/dL (7-23) Creatinine 1.0 mg/dL mg/dL (0.7-1.3) Estimated GFR > 60 Glucose 126 mg/dL H mg/dL (70-100) Calcium 9.4 mg/dL mg/dL (8.5-10.4) Total Bilirubin 0.7 mg/dL mg/dL (0.1-1.4) Conjugated Bilirubin 0.3 mg/dL mg/dL (0.0-0.5) Unconjugated Bilirubin 0.4 mg/dL mg/dL (0.0-1.1) AST 33 IU/L IU/L (17-59) ALT 46 IU/L IU/L (21-72) Alkaline Phosphatase 110 IU/L IU/L (38-126) Troponin I < 0.012 ng/mL ng/mL (0.000-0.034) Total Protein 7.3 g/dL g/dL (6.3-8.2) Albumin 4.4 g/dL g/dL (3.5-5.0) Lipase 53 IU/L IU/L (23-300) Medications Given: Discontinued Medications Aspirin (Aspirin) 324 mg PO EDNOW ONE Stop: 02/20/18 20:58 Last Admin: 02/20/18 21:22 Dose: Not Given Famotidine (Pepcid) 20 mg IVP EDNOW ONE Stop: 02/20/18 21:25 Last Admin: 02/20/18 21:31 Dose: 20 mg Fentanyl (Sublimaze) 100 mcg IVP EDNOW ONE Stop: 02/20/18 21:26 Last Admin: 02/20/18 21:33 Dose: 100 mcg Sodium Chloride (Ns) 500 mls @ 1,000 mls/hr IV EDNOW ONE PRN Reason: Protocol Stop: 02/20/18 21:26 Last Admin: 02/20/18 21:22 Dose: 500 mls Methylprednisolone Sodium Succinate (Solu-Medrol) 125 mg IVP EDNOW ONE Stop: 02/20/18 21:50 Last Admin: 02/20/18 21:53 Dose: 125 mg Ondansetron HCl (Zofran) 4 mg IVP EDNOW ONE Stop: 02/20/18 21:26 Last Admin: 02/20/18 21:31 Dose: 4 mg Departure - Departure Disposition: Home, Routine, Self-Care Clinical Impression: Chest pain Qualifiers: Chest pain type: other chest pain Qualified Code(s): R07.89 - Other chest pain Low back pain Qualifiers: Chronicity: chronic Back pain laterality: unspecified Sciatica presence: without sciatica Qualified Code(s): M54.5 - Low back pain Acute thoracic back pain Qualifiers: Back pain laterality: unspecified Qualified Code(s): M54.6 - Pain in thoracic spine Condition: Good Instructions: Chest Pain (ED), Acute Low Back Pain (ED) Additional Instructions: Return with increased pain, vomiting, weakness, numbness or any other concerns. Referrals: Pb Gardner DO [Primary Care Provider] - 1-2 days without fail
[2018-02-20] MEDS ORDERED: FAMOTIDINE 20 MG/2 ML SDV IVP ONE (21:24)
[2018-02-20] MEDS ORDERED: ONDANSETRON 4 MG/2 ML VIAL IVP ONE (21:25)
[2018-02-20] MEDS ORDERED: fentaNYL 100 MCG/2 ML INJ IVP ONE (21:25)
[2018-02-20] MEDS ORDERED: methylPREDNISolone SOD SUCC 125 MG/2 ML VIAL IVP ONE (21:49)
[2018-02-20] MEDS ORDERED: IOPAMIDOL (ISOVUE 370) 100 ML BTL IV ONE (21:52)
[2018-02-20 22:15] VITALS: BP 142/76
== END 2018-02-20 22:36 | disposition home or self-care (01) ==
DX: M54.5 Low back pain (principal); R07.89 Other chest pain; G89.29 Other chronic pain; M54.6 Pain in thoracic spine; I10 Essential (primary) hypertension; E86.9 Volume depletion, unspecified
CPT/HCPCS: 71046; 71275; 93005; 96361; 96374; 96375; 99285; J2405; J2930; J3010; Q9967

== ENCOUNTER 2019-03-09 16:17 | Emergency (ER) | payer OTHER, MEDICARE ==
[2019-03-09] MEDS ORDERED: NS 1,000 ML IV ONE (16:51)
[2019-03-09 17:09] LABS: PLATELET COUNT 308 10^3/uL (150-400)
--- NOTE | 2019-03-09 17:15 | EDPHY ---
H & P Time Seen by Provider: 03/09/19 16:31 HPI/ROS: CHIEF COMPLAINT: "I think I have a kidney stone" HISTORY OF PRESENT ILLNESS: The patient is a 68-year-old male who presents emergency department with a possible kidney stone. Patient's states that he had kidney stones in the past bilaterally. Left more often than right. Patient describes left-sided flank pain. It radiates to his left lower abdomen. It does not radiate to his testicle. He has had no dysuria or frequency. He has had urgency. No hematuria. Patient denies fevers or chills. No nausea or vomiting. This feels similar to previous kidney stones. REVIEW OF SYSTEMS: 10 systems were reveiwed and are negative with the exception of the elements mentioned in the history of present illness. Past Medical/Surgical History: Includes kidney stones Smoking Status: Never smoked Physical Exam: Vitals noted GENERAL: Well-appearing, in no acute distress, alert. HEENT: Eyes normal to inspection, normal pharynx, no signs of dehydration. NECK: Normal, supple. RESPIRATORY: Clear to auscultation bilaterally, no rales, rhonchi or wheezing. CVS: Regular rate and rhythm, no rubs, murmurs, or gallops. ABDOMEN: Soft, nontender, nondistended, no organomegaly. BACK: Normal to inspection, mild left flank tenderness to palpation SKIN: Normal color, no rash, warm, dry. No pallor. EXTREMITIES: No pedal edema, no calf tenderness, no Homans sign or cords, no joint swelling. NEURO/PSYCH: Alert and oriented, normal mood and affect, normal motor sensory exam. Constitutional: Initial Vital Signs Temperature (C) 36.4 C 03/09/19 16:21 Heart Rate 89 03/09/19 16:21 Respiratory Rate 18 03/09/19 16:21 Blood Pressure 155/117 H 03/09/19 16:21 O2 Sat (%) 94 03/09/19 16:21 O2 Delivery Mode Room Air Allergies/Adverse Reactions: hydromorphone [From Dilaudid] Allergy (Mild, Verified 03/09/19 16:18) Other-Enter Comments morphine Allergy (Mild, Verified 03/09/19 16:18) Other-Enter Comments Home Medications: Medication Instructions Recorded Allopurinol [Allopurinol 300 MG 300 mg PO DAILY 03/30/14 (RX)] Nitroglycerin [Nitrostat 0.4 mg 0.4 mg SL Q5M PRN #1 btl 01/15/17 (*)] Naloxegol Oxalate [Movantik] 12.5 mg PO DAILY PRN 12/02/17 Zolpidem Tartrate [Ambien] 10 mg PO HS 12/02/17 amLODIPine BESYLATE [Norvasc 5 mg 5 mg PO DAILY 12/02/17 (*)] oxyCODONE IR [Oxycodone Ir (*)] 15 mg PO Q4H PRN 12/03/17 Acetaminophen [Tylenol ES 500 mg 1,000 mg PO Q8HRS PRN 02/20/18 (*)] Gabapentin [Neurontin 300 MG (*)] 900 mg PO HS 02/20/18 Multivitamins [Multivitamin (*)] 1 tab PO Q2D 02/20/18 Sennosides/Docusate Sodium 1 - 2 tab PO BID PRN 02/20/18 [Senokot-S] Tamsulosin HCl [Flomax 0.4 MG (*)] 0.4 mg PO HS 02/20/18 Tears/Dextran 70/Hypromellose 1 drop EACHEYE TID PRN 02/20/18 [Natural Balance Tears (*)] Ondansetron Odt [Zofran Odt 4 mg 4 mg PO Q4PRN PRN #7 tab 03/09/19 (*)] Tamsulosin HCl [Flomax] 0.4 mg PO DAILY #4 cap 03/09/19 Medical Decision Making - Diagnostics Imaging Results: Imaging Impressions Abdomen/Pelvis CT 03/09/19 17:23 Impression: 1. Moderate left-sided hydronephrosis secondary to 2 adjacent calculi distal left ureter about 25 mm above the UVJ. 2. Interval increase in bilateral nephrolithiasis. Attention: This CT examination is specifically designed to evaluate patients who are clinically suspected of having acute obstructive uropathy. This examination does not use radiographic contrast, and as such, provides only a limited evaluation of the abdomen, pelvis and retroperitoneum. If there is further clinical suspicion for pathological conditions other than obstructive uropathy, a complete CT evaluation of the abdomen and pelvis utilizing intravenous and oral contrast should be considered. Findings discussed with Nalini Calderon M.D. at 18:27 hour, 03/09/2019. ED Course/Re-evaluation: In the emergency department I discussed possible etiologies with the patient. I answered all his questions. IV was placed. Laboratory studies and CT were ordered. Patient was given Toradol 30 mg IV and Flomax 0.4 mg orally. CBC and chemistry unremarkable. Urine shows positive red cells. CT of the abdomen pelvis: Please refer the dictated report. Patient has 2 distal left ureteral stones. This is causing moderate hydronephrosis. Patient also has numerous kidney stones. The I rechecked the patient. The patient states he was back to his baseline. He has chronic lumbar back pain from his surgery. He feels as though his kidney stone pain has resolved. He has no nausea or vomiting. I discussed disposition options. Patient feels comfortable being discharged home. Patient was given warnings prior to leaving. He will return with worsening symptoms. Differential Diagnosis: My differential includes but is not limited to kidney stone, urinary tract infection, pyelonephritis, dissection, aneurysm, small-bowel obstruction, diverticulitis - Data Points Laboratory Results: Laboratory Results 03/09/19 16:40 03/09/19 16:40 03/09/19 03/09/19 03/09/19 17:07 16:53 16:40 WBC RBC Hgb POC Hgb 16.3 gm/dL gm/dL (13.7-17.5) Hct POC Hct 48 % % (40-51) MCV MCH MCHC RDW Plt Count MPV Neut % (Auto) Lymph % (Auto) Andrews % (Auto) Eos % (Auto) Baso % (Auto) Nucleat RBC Rel Count Absolute Neuts (auto) Absolute Lymphs (auto) Absolute Monos (auto) Absolute Eos (auto) Absolute Basos (auto) Absolute Nucleated RBC Immature Gran % Immature Gran # POC Sodium 142 mEq/L mEq/L (135-145) Sodium 139 mEq/L mEq/L (135-145) POC Potassium 3.9 mEq/L mEq/L (3.3-5.0) Potassium 4.3 mEq/L mEq/L (3.5-5.2) POC Chloride 104 mEq/L mEq/L (97-110) Chloride 103 mEq/L mEq/L (97-110) Carbon Dioxide 24 mEq/l mEq/l (22-31) POC Total CO2 26 mEq/L mEq/L (22-31) Anion Gap 12 mEq/L mEq/L (6-14) POC BUN 16 mg/dL mg/dL (7-23) BUN 17 mg/dL mg/dL (7-23) Creatinine 1.2 mg/dL mg/dL (0.7-1.3) POC Creatinine 1.3 mg/dL mg/dL (0.7-1.3) Estimated GFR 60 Glucose 180 mg/dL H mg/dL (70-100) POC Glucose 183 mg/dL H mg/dL (70-100) Calcium 9.5 mg/dL mg/dL (8.5-10.4) Urine Color YELLOW Urine Appearance CLEAR Urine pH 5.0 (5.0-7.5) Ur Specific Sperry 1.015 (1.002-1.030) Urine Protein NEGATIVE (NEGATIVE) Urine Ketones NEGATIVE (NEGATIVE) Urine Blood 3+ H (NEGATIVE) Urine Nitrate NEGATIVE (NEGATIVE) Urine Bilirubin NEGATIVE (NEGATIVE) Urine Urobilinogen NEGATIVE EU EU (0.2-1.0) Ur Leukocyte Esterase NEGATIVE (NEGATIVE) Urine RBC 50-182 /hpf H /hpf (0-3) Urine WBC 1-3 /hpf /hpf (0-3) Ur Epithelial Cells NONE SEEN /lpf /lpf (NONE-1+) Urine Mucus TRACE /lpf /lpf (NONE-1+) Urine Glucose 1+ H (NEGATIVE) 03/09/19 16:40 WBC 6.96 10^3/uL 10^3/uL (3.80-9.50) RBC 5.68 10^6/uL 10^6/uL (4.40-6.38) Hgb 16.6 g/dL g/dL (13.7-17.5) POC Hgb Hct 48.3 % % (40.0-51.0) POC Hct MCV 85.0 fL fL (81.5-99.8) MCH 29.2 pg pg (27.9-34.1) MCHC 34.4 g/dL g/dL (32.4-36.7) RDW 13.4 % % (11.5-15.2) Plt Count 308 10^3/uL 10^3/uL (150-400) MPV 9.4 fL fL (8.7-11.7) Neut % (Auto) 68.8 % % (39.3-74.2) Lymph % (Auto) 22.7 % % (15.0-45.0) Andrews % (Auto) 5.6 % % (4.5-13.0) Eos % (Auto) 1.9 % % (0.6-7.6) Baso % (Auto) 0.7 % % (0.3-1.7) Nucleat RBC Rel Count 0.0 % % (0.0-0.2) Absolute Neuts (auto) 4.79 10^3/uL 10^3/uL (1.70-6.50) Absolute Lymphs (auto) 1.58 10^3/uL 10^3/uL (1.00-3.00) Absolute Monos (auto) 0.39 10^3/uL 10^3/uL (0.30-0.80) Absolute Eos (auto) 0.13 10^3/uL 10^3/uL (0.03-0.40) Absolute Basos (auto) 0.05 10^3/uL 10^3/uL (0.02-0.10) Absolute Nucleated RBC 0.00 10^3/uL 10^3/uL (0-0.01) Immature Gran % 0.3 % % (0.0-1.1) Immature Gran # 0.02 10^3/uL 10^3/uL (0.00-0.10) POC Sodium Sodium POC Potassium Potassium POC Chloride Chloride Carbon Dioxide POC Total CO2 Anion Gap POC BUN BUN Creatinine POC Creatinine Estimated GFR Glucose POC Glucose Calcium Urine Color Urine Appearance Urine pH Ur Specific Sperry Urine Protein Urine Ketones Urine Blood Urine Nitrate Urine Bilirubin Urine Urobilinogen Ur Leukocyte Esterase Urine RBC Urine WBC Ur Epithelial Cells Urine Mucus Urine Glucose Medications Given: Discontinued Medications Fentanyl (Sublimaze) 100 mcg IVP EDNOW ONE Stop: 03/09/19 17:17 Last Admin: 03/09/19 17:33 Dose: 100 mcg Sodium Chloride (Ns) 1,000 mls @ 0 mls/hr IV ONCE ONE PRN Reason: Wide Open Stop: 03/09/19 16:52 Last Admin: 03/09/19 16:53 Dose: 1,000 mls Ketorolac Tromethamine (Toradol) 30 mg IVP EDNOW ONE Stop: 03/09/19 17:17 Last Admin: 03/09/19 17:31 Dose: 30 mg Tamsulosin HCl (Flomax) 0.4 mg PO EDNOW ONE Stop: 03/09/19 17:17 Last Admin: 03/09/19 17:30 Dose: 0.4 mg Point of Care Test Results: Chemistry 03/09/19 17:07 POC Sodium 142 mEq/L mEq/L (135-145) POC Potassium 3.9 mEq/L mEq/L (3.3-5.0) POC Chloride 104 mEq/L mEq/L (97-110) POC Total CO2 26 mEq/L mEq/L (22-31) POC BUN 16 mg/dL mg/dL (7-23) POC Creatinine 1.3 mg/dL mg/dL (0.7-1.3) POC Glucose 183 mg/dL H mg/dL (70-100) ISTAT H&H 03/09/19 17:07 POC Hgb 16.3 gm/dL gm/dL (13.7-17.5) POC Hct 48 % % (40-51) Departure - Departure Disposition: Home, Routine, Self-Care Clinical Impression: Calculus of kidney and ureter, Renal colic on left side Condition: Good Instructions: Kidney Stones (ED) Additional Instructions: Return with increasing pain, fever, vomiting or any other concerns. Continue to take her Oxy code own medication at home for pain. You can take ibuprofen 3 times daily. You have also been given a prescription for Flomax and Zofran. Zofran will help with the nausea. Flomax helps with kidney stone. Referrals: Pb Gardner DO [Primary Care Provider] - As per Instructions Duy Hurd MD [Medical Doctor] - 5-7 days, call for appt. Prescriptions: Ondansetron Odt [Zofran Odt 4 mg (*)] 4 mg PO Q4PRN PRN #7 tab PRN Reason: For Nausea & Vomiting Tamsulosin HCl [Flomax] 0.4 mg PO DAILY #4 cap
[2019-03-09] MEDS ORDERED: fentaNYL 100 MCG/2 ML INJ IVP ONE (17:16)
[2019-03-09] MEDS ORDERED: TAMSULOSIN HCL 0.4 MG CAP PO ONE (17:16)
[2019-03-09] MEDS ORDERED: KETOROLAC 30 MG/1 ML SDV IVP ONE (17:16)
[2019-03-09 19:10] VITALS: BP 148/91
== END 2019-03-09 19:08 | disposition home or self-care (01) ==
DX: N13.2 Hydronephrosis with renal and ureteral calculous obstruction (principal); N23 Unspecified renal colic; R31.9 Hematuria, unspecified; M54.5 Low back pain; G89.29 Other chronic pain
CPT/HCPCS: 74176; 96361; 96374; 96375; 99285; J1885; J3010; 82435-PO; 82565-PO; 82947-PO; 84132-PO; 84295-PO; 84520-PO; 85014-ER

== ENCOUNTER → 2019-03-16 | Day surgery (SDC) | payer OTHER, MEDICARE ==
[~2019-03-16] MED LIST: IOPAMIDOL (ISOVUE-M 300) 15 ML VIAL ONE; LIDOCAINE 1% 2 ML INJ ID PRN; LIDOCAINE 2% JELLY 20 ML (UROJECT) ONE; LR 1,000 ML IV ONE
[2019-03-16 14:49] VITALS: BP 141/79
== END | disposition home or self-care (01) ==
LOC: FSGY 13:54
PROVIDERS: ATTEND Specialist
DX: N20.1 Calculus of ureter (principal); Z53.9 Procedure and treatment not carried out, unspecified reason
CPT/HCPCS: Q9967

== ENCOUNTER 2019-03-17 05:46 | Day surgery (SDC) | payer OTHER, MEDICARE ==
--- NOTE | 2019-03-16 12:33 | GHP ---
[f rep st] PREOP HISTORY AND PHYSICAL HISTORY OF PRESENT ILLNESS: This is a 68-year-old gentleman who has had left- sided flank pain, started 1 week ago. It has been severe. Went to the emergency room. He is noted to have a 4 mm x 1.5 mm distal left ureteral stone with moderate hydronephrosis and he is admitted for a left ureteroscopic removal of the stone. PAST HISTORY: Significant for ureteral stones, chronic medication and pain for chronic pain and past medical history kidney stones, low back pain. ALLERGIES: None. MEDICATIONS: Include tamsulosin, omeprazole, chlorhexidine, amoxicillin, amlodipine, allopurinol, Zolpidem, , oxycodone. SURGICAL HISTORY: Stones, colonoscopy, circumcision and back surgery. FAMILY HISTORY: Noncontributory. SOCIAL HISTORY: He is nonsmoker. Rarely drinks alcohol. REVIEW OF SYSTEMS: Negative for cardiac, respiratory, GI and endocrine. PHYSICAL EXAMINATION: VITAL SIGNS: Stable. CHEST: Clear. HEART: Regular rate and rhythm. ABDOMEN: Normal no organomegaly, rebound or guarding. EXTREMITIES: Lower extremities are normal. He has left abdominal lower quadrant pain. He had a urinalysis in the office that showed hematuria. He had a residual urine in the office of 30. At the present time we discussed a variety of options of treatment. He has elected to undergo ureteroscopic removal of the calculus. Indications, complications discussed. Written and verbal consent were obtained. /[id number]/MODL MTDD
[2019-03-17] MEDS ORDERED: LR 1,000 ML IV ONE (06:03)
[2019-03-17] MEDS ORDERED: MIDAZOLAM 2 MG/2 ML VIAL IVP ONE (07:01)
--- NOTE | 2019-03-17 07:03 | PDANEPAE ---
ANE History of Present Illness cysto and laser for stones ANE Past Medical History - Cardiovascular History Hx Hypertension: Yes Hx Arrhythmias: No Hx Chest Pain: Yes Hx Coronary Artery / Peripheral Vascular Disease: No Hx CHF / Valvular Disease: No Hx Palpitations: No Cardiovascular History Comment: borderline htn. cad - non-obstructive per cath. admitted for cp in 12/2016 -s/p day after pain injection - pt had [place] at that time,. no obstructing CAD - Pulmonary History Hx COPD: No Hx Asthma/Reactive Airway Disease: No Hx Recent Upper Respiratory Infection: No Hx Oxygen in Use at Home: No Hx Sleep Apnea: Yes Sleep Apnea Screening Result - Last Documented: Positive Pulmonary History Comment: evangelina positive- no devices - Neurologic History Hx Cerebrovascular Accident: No Hx Seizures: No Hx Dementia: No Neurologic History Comment: neck surgery x2. ddd - Endocrine History Hx Diabetes: No - Renal History Hx Renal Disorders: Yes Renal History Comment: bph. hx of kidney stones. bladder surgery x3 - Liver History Hx Hepatic Disorders: No - Neurological & Psychiatric Hx Hx Neurological and Psychiatric Disorders: Yes Neurological / Psychiatric History Comment: depression. insomnia. anxiety. chronic pain - Cancer History Hx Cancer: No - Congenital Disorder History Hx Congenital Disorders: No - GI History Hx Gastrointestinal Disorders: Yes Gastrointestinal History Comment: gerd - Other Health History Other Health History: Gout. wears glasses. missing teeth to upper right jaw - Chronic Pain History Chronic Pain: Yes (upper back and neck) - Surgical History Prior Surgeries: LAMINECTOMY 09/2017 & 2018. 04/05/14 perc neph and kidney stone extraction with Vickey. 04/27/13 laser incision of bladder neck contracture with Vickey. 12/01/12 left ureteral stent removed with green light laser procedure with Vickey. anterior lumbar fusion with bone graft. carpal tunnel release-right 2006. cervical spine surgery 11/2003 c5-6, c6-7 anterior cervical discectomy/ fusion nonunion c6-7. removal of hardware/ fusion c5-7 2005 ANE Review of Systems Review of Systems: - Exercise capacity METS (RN): 3 METS ANE Patient History - Allergies Allergies/Adverse Reactions: hydromorphone [From Dilaudid] Allergy (Mild, Verified 03/16/19 18:30) HEADACHE morphine Allergy (Mild, Verified 03/16/19 18:30) HEADACHE - Home Medications Home medications: home medication list seen and reviewed Home Medications: Allopurinol [Allopurinol 300 MG (RX)] 03/30/14 [Last Taken 03/17/19 04:00] Zolpidem Tartrate [Ambien] HS 12/02/17 [Last Taken 03/16/19] amLODIPine BESYLATE [Norvasc 5 mg (*)] 12/02/17 [Last Taken 03/16/19] oxyCODONE IR [Oxycodone Ir (*)] PRN 12/03/17 [Last Taken 03/17/19 03:00] Acetaminophen [Tylenol ES 500 mg (*)] PRN 02/20/18 [Last Taken 03/17/19 04:00] Tears/Dextran 70/Hypromellose [Natural Balance Tears (*)] TID PRN 02/20/18 [ Last Taken 03/16/19] AMOXICILLIN TID 03/16/19 [Last Taken 03/16/19] - NPO status NPO Status: no food or drink >8 hours NPO Since - Liquids (Date): 03/17/19 NPO Since - Liquids (Time): 04:00 NPO Since - Solids (Date): 03/16/19 NPO Since - Solids (Time): 20:00 - Anes Hx Anes Hx: no prior problems - Smoking Hx Smoking Status: Never smoked - Alcohol Use Alcohol Use: None - Family Anes Hx Family Anes Hx: none Family Hx Anesthesia Complications: NONE ANE Labs/Vital Signs - Vital Signs Respiratory Rate: 14 Height: 180.34 cm Weight: 92.121 kg ANE Physical Exam - Airway Neck exam: FROM Mallampati Score: Class 2 Mouth exam: normal dental/mouth exam - Pulmonary Pulmonary: no respiratory distress - Cardiovascular Cardiovascular: regular rate and rhythym - ASA Status ASA Status: II ANE Anesthesia Plan Anesthesia Plan: GA w LMA
[2019-03-17] MEDS ORDERED: PROPOFOL/EMULSION 500 MG/50 ML BOTTLE IV ONE (07:23)
[2019-03-17] MEDS ORDERED: fentaNYL 100 MCG/2 ML INJ ONE ×2 (07:23→09:20)
[2019-03-17] MEDS ORDERED: ONDANSETRON 4 MG/2 ML VIAL ONE (07:24)
[2019-03-17] MEDS ORDERED: LIDOCAINE 2% 100 MG/5 ML SYR ONE (07:24)
[2019-03-17] MEDS ORDERED: LIDOCAINE 2% JELLY 6 ML TOPICAL SYR ONE (07:24)
[2019-03-17] MEDS ORDERED: DEXAMETHASONE 4 MG/ML VIAL ONE ×2 (07:24)
[2019-03-17] MEDS ORDERED: ceFAZolin 2 GM/DEXTROSE 100 ML IV ONE (07:30)
[2019-03-17] MEDS ORDERED: ePHEDrine SULFATE 25 MG/5 ML SYR ONE (07:56)
[2019-03-17] MEDS ORDERED: LABETALOL HCL 5 MG/ML 20 ML MDV IVP PRN (08:22)
[2019-03-17] MEDS ORDERED: PHENYLEPHRINE HCL 100 MCG/ML SYR IVP PRN (08:22)
[2019-03-17] MEDS ORDERED: DEXAMETHASONE 4 MG/ML VIAL IVP PRN (08:22)
[2019-03-17] MEDS ORDERED: ACETAMINOPHEN 500 MG TAB PO PRN (08:22)
[2019-03-17] MEDS ORDERED: oxyCODONE IR 5 MG TAB PO PRN (08:22)
[2019-03-17] MEDS ORDERED: ONDANSETRON 4 MG/2 ML VIAL IVP PRN (08:22)
[2019-03-17] MEDS ORDERED: NALOXONE HCL 0.4 MG/ML INJ IVP PRN (08:22)
[2019-03-17] MEDS ORDERED: METOCLOPRAMIDE 10 MG/2 ML VIAL IVP PRN (08:22)
[2019-03-17] MEDS ORDERED: PROMETHAZINE HCL 25 MG/ML INJ IVP PRN (08:22)
[2019-03-17] MEDS ORDERED: MEPERIDINE 25 MG/0.5 ML AMP IVP PRN (08:22)
[2019-03-17] MEDS ORDERED: HYDROCODONE/APAP 5/325 TAB PO PRN (08:22)
[2019-03-17] MEDS ORDERED: LR 500 ML IV PRN (08:22)
[2019-03-17] MEDS ORDERED: ALBUTEROL 3 ML DEYVIAL IH PRN (08:22)
--- NOTE | 2019-03-17 08:51 | GOP ---
[f rep st] OPERATIVE REPORT DATE OF OPERATION: 03/17/2019 SURGEON: Duy Hurd MD PREOPERATIVE DIAGNOSIS: Left ureteral calculus and left renal calculus. POSTOPERATIVE DIAGNOSIS: Left ureteral calculus and left renal calculus. PROCEDURE PERFORMED: Ureteroscopy with fluoroscopy, retrograde ureteral pyelogram ureteral dilation, holmium laser of ureteral stone with a semi-rigid scope and holmium laser of renal stones with a flexible scope and placement of 4.7 multi-length stent. FINDINGS:stone SPECIMENS: Small fragment of stone. ESTIMATED BLOOD LOSS: Minimal. DESCRIPTION OF PROCEDURE: This gentleman underwent general anesthesia, prepped and draped in normal sterile fashion. Dr. Bustillo provided general anesthesia. After appropriate time-out, the scope was passed into his bladder. Urethra was normal. Prostate had previous treatment, and he had a large caliber bladder neck contracture. The left ureteral orifice was cannulated with a Liberty catheter. Prior to that, the bladder had no tumor, stones, foreign bodies or diverticula. He did have some petechiae of the bladder compatible with overactive bladder syndrome. Then the retrograde revealed the distal ureteral stone. There appeared to be filling defects in the upper pole of collecting system, and then passed the inner working aspect of the ureteral access sheath over the guidewire. It curled in the renal pelvis, and I could feel the stone distally with passing, so I did not try to pass beyond that stone. Semi-rigid scope went up, and I fragmented the stone, extracted it with a stone basket, and then at that point, the ureter had no trauma other than inflammation from the stone. The stone appeared to be uric acid in nature. At that point, I passed the ureteral access sheath up to the ureteropelvic junction, and I was able to pass the flexible ureteroscope into the kidney, and got a large upper pole calyceal stone that was fragmented with the laser and dusted, and then he had 2 papilla that had embedded Blane plaque-type stones that were lasered. At the end of the procedure, there were no significant residual large stones identified, and on removal of the scope, the ureter was intact. Because of the fragments in the kidney and the inflammation of the ureter, I elected to place a 4.7 multi-length stent under fluoroscopy. It was passed. It curled in the renal pelvis, curled in the bladder and then the Uro-jet placed in the urethra, and the catheter 16 [place] was passed over a guidewire into the bladder. He tolerated the procedure well. He will be discharged home. We will remove his catheter and see him in approximately the 7-10 days to remove the stent, which he had been informed of preoperatively. COMPLICATIONS: None. /[id number]/MODL MTDD
--- NOTE | 2019-03-17 08:52 | POSTOPPROG ---
Post Op Note Date of Operation: 03/17/19 (dictated) Surgeon: Duy Hurd Anesthesiologist: Keny Anesthesia: LMA Pre-op Diagnosis: uretero and nephrolithiasis Procedure: ureteroscopy and laser of ureteral stone and renal stones Inf/Abcess present in the surg proc area at time of surgery?: No EBL: Minimal Drains: Other (stent and catheter) Specimen(s): stone
[2019-03-17] MEDS: fentaNYL 100 MCG/2 ML INJ IVP PRN ×2 (09:20→09:32)
[2019-03-17] MEDS ORDERED: LIDOCAINE 2% JELLY 20 ML (UROJECT) ONE (09:22)
[2019-03-17] MEDS ORDERED: IOPAMIDOL (ISOVUE-M 300) 15 ML VIAL ONE (09:23)
[2019-03-17] MEDS ORDERED: oxyCODONE IR 5 MG TAB ONE (09:55)
[2019-03-17 10:13] VITALS: BP 135/82
== END 2019-03-17 11:25 | disposition home or self-care (01) ==
LOC: FSGY 05:46
PROVIDERS: ATTEND Specialist
PROC: 0T9480Z Drainage of Left Kidney Pelvis with Drainage Device, Via Natural or Artificial Opening Endoscopic (ICD-10-PCS; principal; 2019-03-17 07:15)
PROC: 0TC78ZZ Extirpation of Matter from Left Ureter, Via Natural or Artificial Opening Endoscopic (ICD-10-PCS; principal; 2019-03-17 07:15)
PROC: BT1F1ZZ Fluoroscopy of Left Kidney, Ureter and Bladder using Low Osmolar Contrast (ICD-10-PCS; principal; 2019-03-17 07:15)
DX: N13.2 Hydronephrosis with renal and ureteral calculous obstruction (principal); G89.29 Other chronic pain; F32.9 Major depressive disorder, single episode, unspecified; F41.9 Anxiety disorder, unspecified; M54.16 Radiculopathy, lumbar region; M10.9 Gout, unspecified; Z79.891 Long term (current) use of opiate analgesic
CPT/HCPCS: 52356; 76000; C1758; C1769; C1894; C2625; J0690; J1100; J2001; J2250; J2405; J2704; J3010; Q9967